=== PATIENT | male | born 1935 | race Caucasian/White ===

== ENCOUNTER → 2016-12-29 | Outpatient (CLI) | payer OTHER ==
[2016-12-29 11:16] LABS: ALT/SGPT 29 U/L (12-78); BLOOD UREA NITROGEN 16 mg/dl (7-18); BUN/CREATININE RATIO 13.3 (10-20); CALCIUM 8.8 mg/dl (8.5-10.1); CARBON DIOXIDE 29 mmol/L (21-32); CHLORIDE 105 mmol/L (98-107); CHOLESTEROL 169 mg/dl (0-200); GLUCOSE 118 mg/dl (70-99); POTASSIUM 4.2 mmol/L (3.5-5.1); SODIUM 141 mmol/L (136-145)
[2016-12-29 11:19] LABS: ALB/GLOB RATIO 1.1 (0.9-2); ALKALINE PHOSPHATASE 35 U/L (45-117); AST/SGOT 21 U/L (15-37); HDL CHOLESTEROL 42 mg/dl; LDL CHOLESTEROL CALCULATED 101 mg/dl; TRIGLYCERIDES 130 mg/dl (0-150); VERY LOW DENSITY LIPOPROT CALC 26 mg/dl
[2016-12-29 11:20] LABS: ESTIMATED AVERAGE GLUCOSE 137 mg/dl; HA1C FLAG Normal (Normal)
[2016-12-29 12:10] LABS: HEMATOCRIT 40.7 % (42-52); MEAN CELL VOLUME 85.1 fL (80-100); MEAN CORPUSCULAR HEMOGLOBIN 28.7 pg (25-34); MEAN CORPUSCULAR HGB CONC 33.7 g/dl (32-36); RED BLOOD COUNT 4.78 M/uL (4.7-6.1); WHITE BLOOD COUNT 4.48 K/uL (4.8-10.8)
[2016-12-29 12:16] LABS: BASO % 0.2 %; BASO ABS # 0.01 K/uL (0-0.2); COMPLETE YES; EOS % 0.7 %; IG% 0.9 %; LYMPH % 32.8 %; LYMPH ABS # 1.47 K/uL (1.2-3.4); MEAN PLATELET VOLUME 10.6 fL (7.4-10.4); NEUT % 42.4 %; PLATELET COUNT 93 K/uL (130-400)
== END | disposition home or self-care (01) ==
LOC: C.LABBC 08:10
PROVIDERS: ATTEND Internal Medicine
DX: R73.01 Impaired fasting glucose (principal)

== ENCOUNTER → 2017-01-03 | Outpatient (CLI) | payer OTHER ==
[2017-01-03 11:30] LABS: FERRITIN 348.6 ng/ml (8.0-388.0)
== END | disposition home or self-care (01) ==
LOC: C.LABBC 07:49
PROVIDERS: ATTEND Internal Medicine
DX: D61.818 Other pancytopenia (principal)

== ENCOUNTER → 2017-10-13 | Outpatient (CLI) | payer OTHER ==
[2017-10-13 10:59] LABS: HEMATOCRIT 41.4 % (42-52); MEAN CELL VOLUME 84.8 fL (80-100); MEAN CORPUSCULAR HEMOGLOBIN 29.3 pg (25-34); MEAN CORPUSCULAR HGB CONC 34.5 g/dl (32-36); MEAN PLATELET VOLUME 11.6 fL (7.4-10.4); PLATELET COUNT 98 K/uL (130-400); RED BLOOD COUNT 4.88 M/uL (4.7-6.1)
[2017-10-13 11:16] LABS: ALT/SGPT 33 U/L (12-78); AST/SGOT 25 U/L (15-37); BLOOD UREA NITROGEN 21 mg/dl (7-18); BUN/CREATININE RATIO 15.2 (10-20); CARBON DIOXIDE 31 mmol/L (21-32); CHLORIDE 101 mmol/L (98-107); CREATININE 1.38 mg/dl (0.60-1.40); GLUCOSE 136 mg/dl (70-99); SODIUM 133 mmol/L (136-145)
[2017-10-13 11:21] LABS: ALB/GLOB RATIO 1.1 (0.9-2); ALKALINE PHOSPHATASE 43 U/L (45-117); PROSTATE SPECIFIC ANTIGEN 0.224 ng/ml (0.000-4.000)
[2017-10-13 11:24] LABS: COMPLETE YES; LARGE GRANULAR LYMPH ABSOLUTE 0.86 K/uL; LARGE GRANULAR LYMPHOCYTE % 18.2 %; LYMPH ABS # 0.94 K/uL (1.2-3.4); NEUTROPHILS % 46.3 %; VACUOLIZATION 1+
[2017-10-13 11:53] LABS: ESTIMATED AVERAGE GLUCOSE 131 mg/dl; HA1C FLAG Normal (Normal)
== END | disposition home or self-care (01) ==
LOC: C.LABBC 07:59
PROVIDERS: ATTEND Urology
DX: N40.1 Benign prostatic hyperplasia with lower urinary tract symptoms (principal); J44.9 Chronic obstructive pulmonary disease, unspecified; G47.33 Obstructive sleep apnea (adult) (pediatric); E78.5 Hyperlipidemia, unspecified; R73.01 Impaired fasting glucose; I12.9 Hypertensive chronic kidney disease with stage 1 through stage 4 chronic kidney disease, or unspecified chronic kidney disease; N18.3 Chronic kidney disease, stage 3 (moderate); D61.818 Other pancytopenia

== ENCOUNTER → 2017-10-20 | Outpatient (CLI) | payer OTHER ==
[2017-10-20 11:16] LABS: BLOOD UREA NITROGEN 20 mg/dl (7-18); CALCIUM 8.9 mg/dl (8.5-10.1); CARBON DIOXIDE 28 mmol/L (21-32); GLUCOSE 135 mg/dl (70-99); SODIUM 137 mmol/L (136-145)
== END | disposition home or self-care (01) ==
LOC: C.LABBC 07:16
PROVIDERS: ATTEND Internal Medicine
DX: I10 Essential (primary) hypertension (principal)

== ENCOUNTER → 2017-10-26 | Outpatient (CLI) | payer OTHER ==
[2017-10-26 11:33] LABS: BLOOD UREA NITROGEN 17 mg/dl (7-18); CALCIUM 8.7 mg/dl (8.5-10.1); CARBON DIOXIDE 25 mmol/L (21-32); CREATININE 1.19 mg/dl (0.60-1.40); GLUCOSE 105 mg/dl (70-99); POTASSIUM 3.9 mmol/L (3.5-5.1); SODIUM 135 mmol/L (136-145)
== END | disposition home or self-care (01) ==
LOC: C.LABBC 07:40
PROVIDERS: ATTEND Internal Medicine
DX: I10 Essential (primary) hypertension (principal)

== ENCOUNTER 2019-09-17 16:09 | Inpatient (IN) ==
[2019-09-17] MEDS ORDERED: SODIUM CHLORIDE 0.9% 500 ML IV SCH (16:30)
--- NOTE | 2019-09-17 17:13 | XRay Report ---
XR chest 1V portable CLINICAL HISTORY: sob syncope dyspnea COMPARISON STUDY: No previous studies for comparison. FINDINGS: The bones soft tissues and hemidiaphragms are normal. The cardiomediastinal silhouette is n ormal. The lungs are clear. The pulmonary vasculature is normal. IMPRESSION: Negative chest. The above report was generated using voice recognition software. It may contain grammatical, syntax or spelling errors. Electronically signed by: Js Collier M.D. 09/17/2019 5:11 PM
[2019-09-17 17:30] LABS: Basophils # (auto) 0.02 K/uL (0-0.2); Basophils % (auto) 0.2 %; Eosinophils # (auto) 0.05 K/uL (0-0.5); Eosinophils % (auto) 0.6 %; Hematocrit (blood only) 39.1 % (42-52); Immature Granulocytes # (auto) 0.13 K/uL (0.00-0.02); Immature Granulocytes % (auto) 1.6 %; Lymphocytes # (auto) 1.47 K/uL (1.2-3.4); Lymphocytes % (auto) 18.2 %; Mean Corpuscular Hemoglobin 28.7 pg (25-34); Mean Corpuscular Hgb Conc 33.2 g/dL (32-36); Mean Corpuscular Volume 86.3 fL (80-100); Mean Platelet Volume 10.7 fL (7.4-10.4); Monocytes # (auto) 2.74 K/uL (0.11-0.59); Neutrophils # (auto) 3.66 K/uL (1.4-6.5); Neutrophils % (auto) 45.4 %; Platelet Count 48 K/uL (130-400); Platelet Estimate CAC (Normal); RDW Coefficient of Variation 13.6 % (11.5-14.5); Red Blood Count 4.53 M/uL (4.7-6.1); White Blood Count 8.07 K/uL (4.8-10.8)
[2019-09-17 18:00] LABS: D Dimer 1150 ug/L FEU (0-500)
[2019-09-17 18:05] LABS: Alanine Aminotransferase 32 U/L (12-78); Albumin Level 3.8 gm/dl (3.4-5.0); Aspartate Aminotransferase 29 U/L (15-37); BUN Creatinine Ratio 11.2 (10-20); Blood Urea Nitrogen 14 mg/dl (7-18); Calcium 8.6 mg/dl (8.5-10.1); Carbon Dioxide 25 mmol/L (21-32); Chloride 111 mmol/L (98-107); Creatinine Clr Calc Pharmacy 51.7 ml/min; Est GFR (African American) 62.7; Est GFR (Non-African American) 54.1; Glucose 90 mg/dl (70-99); Magnesium 2.1 mg/dl (1.8-2.4); Sodium 141 mmol/L (136-145)
[2019-09-17 18:09] LABS: Appearance Urine Clear (Clear); Bilirubin Urine Negative (Negative); Blood Urine Negative (Negative); Color Urine Yellow; Glucose Urine UA Negative (Negative); Ketones Urine Negative (Negative); Leukocyte Esterase Urine Negative (Negative); Nitrite Urine Negative (Negative); Protein Urine Negative (Negative); Specific Gravity Urine 1.009 (1.000-1.030); Urobilinogen Urine Negative (Negative)
[2019-09-17 18:16] LABS: Albumin Globulin Ratio 1.1 (0.9-2); Alkaline Phosphatase 50 U/L (45-117); Bilirubin,Total 0.6 mg/dl (0.2-1); Globulin 3.6 gm/dl (2.5-4.0); Total Protein 7.4 gm/dl (6.4-8.2); Troponin I < 0.015 ng/ml (0-0.045)
[2019-09-17] MEDS ORDERED: IOVERSOL 100ml IV PRN (18:30)
--- NOTE | 2019-09-17 18:31 | Emergency Department Note ---
Entered by Elizabeth Gaffney acting as a scribe for History of Present Illness General Chief complaint: Syncope Stated complaint: SYNCOPE, FALL Time Seen by Provider: 09/17/19 16:10 Source: patient History of Present Illness Provider complaint: Syncope Onset (ago): hour(s) 1 Pain Consistency: + other (Episodic) Relieved By: + none Exacerbated By: + none Associated symptoms: + shortness of breath; no chest pain, no headaches and no nausea/vomiting The patient is a 83 year old male who presents to the Emergency Room with complaints of episodic syncope that occurred while walking into the football stadium about 1 hour ago. Patient walked up the road a [place] and then was walking up the ramp at the stadium when he became short of breath. He grabbed onto the railing and passed out for several seconds. The patients friend note that he fell to his knees and then went down onto the ground and does not believe he hit his head. The patient's family states the patient was only unconscious for a second or two. The patient states the symptoms are not relieved nor exacerbated by anything specific. The patient reports experiencing shortness of breath but denies any chest pain. The patient denies experiencing any headaches or nausea/vomiting. The patient has a history of COPD but denies any history of diabetes, hypertension, or arrhythmias. Currently he has no complaints at this time. No head or neck pain, chest abdomen pelvis or extr emity pain. Home Medications Home Medications Medication Instructions Recorded Confirmed Type aspirin 81 mg tablet 81 mg PO DAILY tab 07/08/19 09/17/19 History docusate sodium 100 mg capsule 100 mg PO DAILY cap 07/08/19 09/17/19 History garlic 500 mg capsule 500 mg PO DAILY 07/08/19 09/17/19 History mometasone 50 mcg/actuation nasal 2 sprays INTRANASAL DAILY gm 07/08/19 09/17/19 History spray multivitamin 1 tab PO DAILY 07/08/19 09/17/19 History omega-3 acid ethyl esters 1 gram 1 cap PO DAILY cap 07/08/19 09/17/19 History capsule omeprazole 20 mg capsule,delayed 20 mg PO DAILY 08/15/19 09/17/19 History release potassium 99 mg tablet 99 mg PO DAILY 08/15/19 09/17/19 History tiotropium bromide 18 mcg capsule 1 cap INHALATION DAILY #90 puffs 09/02/19 09/17/19 Rx with inhalation device Allergies Allergy/AdvReac Type Severity Reaction Status Date / Time albuterol Allergy Verified 09/17/19 16:56 Past Med/Surg History Medical History COPD with emphysema Surgical History H/O eye surgery Family History Other Diabetes Hypertension Stroke Social History Preferred Language: Turkmen Communication Ability: Effective Beliefs That Will Affect Care: None marital status: Current Living Situation: Spouse current occupational status: retired Other Information That Helps Us Care for You: No Feels Safe at Home: Yes Safety Concerns: Feels Safe At This Time Smoking Status: Former smoker Hx Alcohol Use: Yes Alcohol type: beer, wine and hard liquor Hx Substance Use: No Review of Systems See HPI for pertinent positives & negatives. and A total of 10 systems reviewed and were otherwise negative Physical Exam Vital Signs Vital Signs - 24 hr 09/17/19 16:19 09/17/19 16:27 09/17/19 17:07 Temperature 36.9 C Temperature Source Oral Pulse Rate 77 Pulse Rate [Left] 66 Respiratory Rate 17 18 Respiratory Effort / Characteristics Non-Labored Spontaneous Non-Labored Spontaneous Respiratory Depth Normal Blood Pressure 181/102 H Blood Pressure [Right Arm] 157/97 H Blood Pressure Mean 128 Blood Pressure Mean [Right Arm] 117 Blood Pressure Position Lying Blood Pressure Position [Right Arm] Lying Pulse Oximetry 94 94 Oxygen Delivery Method Room Air Room Air Room Air Sepsis Recent Fever Within 48 Hours No Sepsis New/Unexplained Change in Mental Status No Sepsis Action Taken by Nursing No Action Required GENERAL: alert, well appearing, well nourished, no distress, non-toxic. Sitting up in bed. Talking in full sentences. Wearing a hospital gown. HEAD: normal cephalic, atraumatic EYE EXAM: normal conjunctiva, PERRL and EOM's grossly intact OROPHARYNX: no exudate, no erythema, lips, buccal mucosa, and tongue normal and mucous membranes are moist NECK: supple, no nuchal rigidity, no adenopathy, non-tender CHEST: stable to compression anteriorly and posteriorly LUNGS: clear to auscultation. Normal chest wall mechanics HEART: no murmurs, S1 normal and S2 normal ABDOMEN: abdomen soft, non-tender, normo-active bowel sounds, no masses, no re bound or guarding. PELVIS: stable to compression anteriorly and posteriorly BACK: Back is symmetrical on inspection and there is no deformity, no midline tenderness, no CVA tenderness. UPPER EXTREMITIES: full active and passive range of motion of all joints without tenderness to palpation LOWER EXTREMITIES: full active and passive range of motion of all joints without tenderness to palpation. Calves equal bilaterally. NEURO EXAM: Normal sensorium, cranial nerves II-XII grossly intact, normal speech, no gross weakness of arms, no gross weakness of legs. GCS: 15. Course Course ED COURSE: Vital signs were reviewed and showed that the patient is situationally hypertensive. The patients medical record was reviewed The above diagnostic studies were performed and reviewed. ED treatments and interventions as stated above. 1611: The patient was evaluated in room C06. A complete history and physical examination was performed. 1809: Upon reevaluation, the patient is resting comfortably. I discussed my findings with the patient's family and the patient's family understands and agrees with the treatment plan. 1845: I reassessed and updated the patient and his family on the CT results. Based on the patients age, coexisting illnesses, exam and lab findings the decision to treat as an inpatient was made. The patient remained stable while under my care. 1813: I spoke with Dr[facility] about the patient's case and she will accept the patient to be evaluated for further management. Administered Medications Ioversol (Optiray 320 100ml) 97 ml IV ONCE PRN PRN Reason: Interaction Checking Stop: 09/21/19 18:29 Last Admin: 09/17/19 18:30 Dose: 97 ml Documented by: [id number] Discontinued Medications Sodium Chloride (Nss) 500 mls @ 999 mls/hr IV .Q31M EPHRAMI Stop: 09/17/19 17:00 Last Infusion: 09/17/19 17:07 Dose: 0 mls/hr Documented by: [id number] Admin: 09/17/19 16:34 Dose: 999 mls/hr Documented by: [id number] Medical Decision Making Differential Diagnosis Differential diagnosis includes etiologies such as vasovagal event, infection, hypoglycemia, electrolyte abnormalities, cardiac sources, intracerebral event, toxicologic, neurologic, as well as others were entertained. Medical Records Attestation: I reviewed the patient's medical records. Home Medications Current Medication List: was personally reviewed by me Laboratory Data Attestation: I reviewed the patient's lab results. Result diagrams: 09/17/19 16:45 09/17/19 16:45 Lab Results 09/17/19 09/17/19 09/17/19 Range/Units 16:45 16:45 16:45 WBC 8.07 (4.8-10.8) K/uL RBC 4.53 L (4.7-6.1) M/uL Hgb 13.0 L (14.0-18.0) g/dL Hct 39.1 L (42-52) % MCV 86.3 (80-100) fL MCH 28.7 (25-34) pg MCHC 33.2 (32-36) g/dL RDW Std Deviation 43.0 (36.4-46.3) fL RDW Coeff of Princess 13.6 (11.5-14.5) % Plt Count 48 L (130-400) K/uL MPV 10.7 H (7.4-10.4) fL Immature Gran % (Auto) 1.6 % Neut % (Auto) 45.4 % Lymph % (Auto) 18.2 % [place] % (Auto) 34.0 % Eos % (Auto) 0.6 % Baso % (Auto) 0.2 % Immature Gran # (Auto) 0.13 H (0.00-0.02) K/uL Neut # (Auto) 3.66 (1.4-6.5) K/uL Lymph # (Auto) 1.47 (1.2-3.4) K/uL [place] # (Auto) 2.74 H (0.11-0.59) K/uL Eos # (Auto) 0.05 (0-0.5) K/uL Baso # (Auto) 0.02 (0-0.2) K/uL Platelet Estimate CAC (Normal) D-Dimer 1150 H* (0-500) ug/L FEU Sodium 141 (136-145) mmol/L Potassium 4.0 (3.5-5.1) mmol/L Chloride 111 H (98-107) mmol/L Carbon Dioxide 25 (21-32) mmol/L Anion Gap 5.0 (3-11) BUN 14 (7-18) mg/dl Creatinine 1.22 (0.6-1.4) mg/dl Est Cr Clr Drug Dosing 51.7 ml/min Est GFR ( Amer) 62.7 Est GFR (Non-Af Amer) 54.1 BUN/Creatinine Ratio 11.2 (10-20) Glucose 90 (70-99) mg/dl Calcium 8.6 (8.5-10.1) mg/dl Magnesium 2.1 (1.8-2.4) mg/dl Total Bilirubin 0.6 (0.2-1) mg/dl AST 29 (15-37) U/L ALT 32 (12-78) U/L Alkaline Phosphatase 50 (45-117) U/L Troponin I < 0.015 (0-0.045) ng/ml Total Protein 7.4 (6.4-8.2) gm/dl Albumin 3.8 (3.4-5.0) gm/dl Globulin 3.6 (2.5-4.0) gm/dl Albumin/Globulin Ratio 1.1 (0.9-2) TSH 2.170 (0.300-4.500) uIu/ml Urine Color Urine Appearance (Clear) Urine pH (4.5-7.5) Ur Specific [place] (1.000-1.030) Urine Protein (Negative) Urine Glucose (UA) (Negative) Urine Ketones (Negative) Urine Blood (Negative) Urine Nitrite (Negative) Urine Bilirubin (Negative) Urine Urobilinogen (Negative) Ur Leukocyte Esterase (Negative) 09/17/19 Range/Units 17:40 WBC (4.8-10.8) K/uL RBC (4.7-6.1) M/uL Hgb (14.0-18.0) g/dL Hct (42-52) % MCV (80-100) fL MCH (25-34) pg MCHC (32-36) g/dL RDW Std Deviation (36.4-46.3) fL RDW Coeff of Princess (11.5-14.5) % Plt Count (130-400) K/uL MPV (7.4-10.4) fL Immature Gran % (Auto) % Neut % (Auto) % Lymph % (Auto) % [place] % (Auto) % Eos % (Auto) % Baso % (Auto) % Immature Gran # (Auto) (0.00-0.02) K/uL Neut # (Auto) (1.4-6.5) K/uL Lymph # (Auto) (1.2-3.4) K/uL [place] # (Auto) (0.11-0.59) K/uL Eos # (Auto) (0-0.5) K/uL Baso # (Auto) (0-0.2) K/uL Platelet Estimate (Normal) D-Dimer (0-500) ug/L FEU Sodium (136-145) mmol/L Potassium (3.5-5.1) mmol/L Chloride (98-107) mmol/L Carbon Dioxide (21-32) mmol/L Anion Gap (3-11) BUN (7-18) mg/dl Creatinine (0.6-1.4) mg/dl Est Cr Clr Drug Dosing ml/min Est GFR ( Amer) Est GFR (Non-Af Amer) BUN/Creatinine Ratio (10-20) Glucose (70-99) mg/dl Calcium (8.5-10.1) mg/dl Magnesium (1.8-2.4) mg/dl Total Bilirubin (0.2-1) mg/dl AST (15-37) U/L ALT (12-78) U/L Alkaline Phosphatase (45-117) U/L Troponin I (0-0.045) ng/ml Total Protein (6.4-8.2) gm/dl Albumin (3.4-5.0) gm/dl Globulin (2.5-4.0) gm/dl Albumin/Globulin Ratio (0.9-2) TSH (0.300-4.500) uIu/ml Urine Color Yellow Urine Appearance Clear (Clear) Urine pH 7.0 (4.5-7.5) Ur Specific [place] 1.009 (1.000-1.030) Urine Protein Negative (Negative) Urine Glucose (UA) Negative (Negative) Urine Ketones Negative (Negative) Urine Blood Negative (Negative) Urine Nitrite Negative (Negative) Urine Bilirubin Negative (Negative) Urine Urobilinogen Negative (Negative) Ur Leukocyte Esterase Negative (Negative) Imaging Data Radiologist's Impression: Radiology results as stated below per my review and the radiologist's interpretation: XR chest 1V portable CLINICAL HISTORY: sob syncope dyspnea COMPARISON STUDY: No previous studies for comparison. FINDINGS: The bones soft tissues and hemidiaphragms are normal. The cardiomediastinal silhouette is normal. The lungs are clear. The pulmonary vasculature is normal. IMPRESSION: Negative chest. The above report was generated using voice recognition software. It may contain grammatical, syntax or spelling errors. Electronically signed by: Js Collier M.D. 09/17/2019 5:[address] angio chest PE protocol CT DOSE: 647.70 mGy.cm HISTORY: Dyspnea +dd sob syncope TECHNIQUE: Multiaxial CT images of the chest were performed following the intravenous administration of contrast to evaluate the pulmonary arteries. Maximal intensity projection images were also obtained. A dose lowering technique was utilized adhering to the principles of ALARA. COMPARISON STUDY: None. FINDINGS: There is a normal caliber thoracic aorta with no evidence for dissection. There is no evidence for pulmonary embolus. No pleural effusions. No pneumothorax. The liver and spleen are unremarkable. No mediastinal or hilar ly mphadenopathy. The central airways are patent. The lungs are clear. There is suggestion of perhaps a very subtle basilar interstitial prominence. IMPRESSION: 1. No evidence for pulmonary embolus. 2. Very slight basilar interstitial prominence 3. Lungs otherwise appear clear with no focal infiltrate. The above report was generated using voice recognition software. It may contain grammatical, syntax or spelling errors. Electronically signed by: Js Collier M.D. 09/17/2019 6:36 PM ECG Data Attestation: I personally reviewed and interpreted this ECG as follows: Indication: + syncope Rate (beats per minute): 77 Rhythm: + sinus rhythm ECG Intervals/blocks: + First degree AV block and + Left bundle branch block ECG ST segments: + ST depression and + T-wave inversions (Lateral) ECG Findings: + Other (Normal QTC) Comparison ECG Date: from (2002) Change: the following changes noted (LBBB is new) Blood Pressure Blood Pressure Findings: Elevated blood pressure Blood Pressure Disposition: further management by hospitalist FESTUS Narrative Patient is an 83-year-old male with a past medical history of CKD, hyperlipidemia and COPD that presents the ER for exertional shortness of breath and syncope. He walked up [place] to the football game and was going up the ramp and became more and more short of breath and passed out. He woke up, he had no complaints. There was no seizure activity. He did recently get back from a flight to [place]. IV was established blood work was obtained. He was brought in by EMS. CBC along with BMP, LFTs and troponin was unremarkable. D-dimer was positive and obtained due to recent travel. Chest x-ray without any focal infiltrate per my review. EKG has a new left bundle in comparison to his old. CT PE was obtained and was negative for any acute PE or dissection. Discussed with the hospitalist for observation due to exertional syncope with shortness of breath and a new left bundle. Patient and family were updated at bedside. Impression & Plan Syncope, New onset left bundle branch block (LBBB), SOB (shortness of breath), Thrombocytopenia Discharge Plan Visit Data Chief Complaint: Syncope Stated Complaint: SYNCOPE, FALL ED Provider: Paulino Ordoñez Discharge Problem: Syncope, New onset left bundle branch block (LBBB), SOB (shortness of breath), Thrombocytopenia Forms Stand Alone Forms: [facility] Prescriptions Prescriptions: No Action aspirin 81 mg tablet 81 mg PO DAILY RF: 0 docusate sodium 100 mg capsule 100 mg PO DAILY RF: 0 omega-3 acid ethyl esters 1 gram capsule 1 cap PO DAILY RF: 0 garlic 500 mg capsule 500 mg PO DAILY RF: 0 mometasone 50 mcg/actuation spray,non-aerosol 2 sprays intranasal DAILY RF: 0 multivitamin [Daily Multi-Vitamin] tablet 1 tab PO DAILY RF: 0 omeprazole 20 mg capsule,delayed release(DR/EC) 20 mg PO DAILY RF: 0 potassium 99 mg tablet 99 mg PO DAILY RF: 0 tiotropium bromide 18 mcg capsule, w/inhalation device 1 cap inhalation DAILY Qty: 90 RF: 3 Discharge Problem: Syncope Qualifiers: Syncope type: unspecified Qualified Code(s): R55 - Syncope and collapse The scribe's documentation has been prepared under my direction and personally reviewed by me in its entirety. I confirm that the note above accurately reflects all work, treatment, procedures, and medical decision making performed by me.
--- NOTE | 2019-09-17 18:37 | CT Scan Report ---
CT angio chest PE protocol CT DOSE: 647.70 mGy.cm HISTORY: Dyspnea +dd sob syncope TECHNIQUE: Multiaxial CT images of the chest were performed following the intravenous administration of contrast to evaluate the pulmonary arteries. Maximal intensity projection images were also obtaine d. A dose lowering technique was utilized adhering to the principles of ALARA. COMPARISON STUDY: None. FINDINGS: There is a normal caliber thoracic aorta with no evidence for dissection. There is no evide nce for pulmonary embolus. No pleural effusions. No pneumothorax. The liver and spleen are unremarkab le. No mediastinal or hilar lymphadenopathy. The central airways are patent. The lungs are clear. The re is suggestion of perhaps a very subtle basilar interstitial prominence. IMPRESSION: 1. No evidence for pulmonary embolus. 2. Very slight basilar interstitial prominence 3. Lungs otherwise appear clear with no focal infiltrate. The above report was generated using voice recognition software. It may contain grammatical, syntax or spelling errors. Electronically signed by: Js Collier M.D. 09/17/2019 6:36 PM
[2019-09-17] MEDS ORDERED: POLYETHYLENE (MIRALAX) 17 GM PACK PO PRN (21:02)
[2019-09-17] MEDS ORDERED: MAGNESIUM HYDROXIDE SUSP 30 ML UDC PO PRN (21:02)
[2019-09-17] MEDS ORDERED: ONDANSETRON INJ 2 MG/ML 2 ML VIAL IV PRN (21:02)
[2019-09-17] MEDS ORDERED: NON-FORMULARY MEDICATION (Garlic 500 MG) PO SCH (21:02)
[2019-09-17] MEDS ORDERED: ALUMINUM/MAGNESIUM SUSP 30 ML UDC PO PRN (21:02)
[2019-09-17] MEDS ORDERED: ACETAMINOPHEN 325 MG TAB PO PRN (21:02)
[2019-09-17] MEDS: TIOTROPIUM BROMIDE 5 PUFF/90 MCG INH INH SCH (21:56)
[2019-09-17] MEDS: MULTIVITAMIN TAB PO SCH (21:56)
[2019-09-17] MEDS: DOCUSATE SODIUM 100 MG CAP PO SCH (21:56)
[2019-09-17] MEDS ORDERED: ENOXAPARIN INJ 40 MG/0.4 ML SYR SQ SCH (22:00)
--- NOTE | 2019-09-17 22:04 | History & Physical Report ---
Date of Service September 17, 2019 Assessment & Plan (1) Syncope: Mid to PCU on telemetry for observation Vital signs every 4 hours Consult cardiology TTE pending MRI brain pending Pt started on Atoravastatine 40 mg PO Qhs. Second Troponin is mildly elev ated, check troponins x3 with EKG Started hydralazine 10 mg p.o. 4 times daily for elevated blood pressure as needed. DVT ppx : SCD, Teds Present on Admission?: Yes (2) New onset left bundle branch block (LBBB): Patient also has elevated troponin. Consult cardiology TTE pending (3) SOB (shortness of breath): Resolved Present on Admission?: Yes (4) Thrombocytopenia: Platelet count 46. Not clear origin or thrombocytopenia nor patient ever investigated for thrombocytopenia. Will refer to hematology oncology. Consult placed. Present on Admission?: Yes (5) Hyperlipidemia: Lipid panel pending. Started atorvastatin 40 mg p.o. nightly Present on Admission?: Yes (6) Impaired fasting glucose: A1c 6.2. Patient placed on diabetic diet. Present on Admission?: Yes (7) BPH (benign prostatic hyperplasia): She is not taking any medication for BPH. Will check PSA. Present on Admission?: Yes (8) Sleep apnea: Continue CPAP as per home settings. Present on Admission?: Yes (9) COPD (chronic obstructive pulmonary disease): Stable. Continue to tiotropium bromide 18 MCG's with inhalation daily. Continue mometasone 50 MCG's 2 sprays. Present on Admission?: Yes History of Present Illness Chief Complaint: Syncope Primary Care Provider: Ivan Mcduffie MD Patient is a 83 years old male will past medical history of COPD, hypertension, hyperlipidemia, impaired fasting glucose, BPH was brought by EMS to the em ergency room after the episodic syncope that occurred while walking [place] the football stadium about 1 hour ago. Patient walked up the road at [facility] and then he was walking up the ramp at the stadium when he became short of breath. Patient grabbed onto the railing and passed out for several seconds. Patient family was next to him and they noted that he fell on his knees and then went down on the ground but he did not hit his head. The patient stated that the patient was only unconscious for seconds or 2. Patient states that the symptoms are not relieved nor exacerbated by anything specific. Patient denies drinking or smoking at the time when the incident happened. Patient reports experiencing shortness of breath but denies chest pain. Patient denies fever, chills, chest pain, abdominal pain, frequency, urgency was sent patient arrived to the emergency room as he was not short of breath anymore and he was fully alert and oriented and giving the proper history. Patient is very pleasant in person and said that he was only taking his inhaler and usually he was not taking any other of his medications. Patient uses CPAP at night. Labs are reviewed: WBCs 8.07, hemoglobin 13, hematocrit 39.1 platelets 48, D-dimers 1150, sodium 141, potassium 4, magnesium 2.1, AST 29, ALT 32, alkaline phosphatase 50., Chloride 111, anion gap 5, BUN 14, creatinine 1.22, GFR 54.1, initial troponin was - 0.015, the second troponin was 0.0 46, TSH 2.17. CTA of the chest no evidence of pulmonary embolism. Very slight bibasilar interstitial prominence. Lungs otherwise appear clear with no focal infiltrate. Initial EKG is showing sinus rhythm with with first-degree AV block and left bundle branch block. Allergies Allergy/AdvReac Type Severity Reaction Status Date / Time albuterol Allergy Verified 09/17/19 16:56 Home Medications Home Medications Medication Instructions Recorded Confirmed Type aspirin 81 mg tablet 81 mg PO DAILY tab 07/08/19 09/17/19 History docusate sodium 100 mg capsule 100 mg PO DAILY cap 07/08/19 09/17/19 History garlic 500 mg capsule 500 mg PO DAILY 07/08/19 09/17/19 History mometasone 50 mcg/actuation nasal 2 sprays INTRANASAL DAILY gm 07/08/19 09/17/19 History spray multivitamin 1 tab PO DAILY 07/08/19 09/17/19 History omega-3 acid ethyl esters 1 gram 1 cap PO DAILY cap 07/08/19 09/17/19 History capsule omeprazole 20 mg capsule,delayed 20 mg PO DAILY 08/15/19 09/17/19 History release potassium 99 mg tablet 99 mg PO DAILY 08/15/19 09/17/19 History tiotropium bromide 18 mcg capsule 1 cap INHALATION DAILY #90 puffs 09/02/19 09/17/19 Rx with inhalation device Past Med/Surg History Medical History COPD with emphysema Surgical History H/O eye surgery Family History Other Diabetes Hypertension Stroke Social History Preferred Language: Telugu Communication Ability: Effective Beliefs That Will Affect Care: None marital status: Current Living Situation: Spouse current occupational status: retired Other Information That Helps Us Care for You: No Feels Safe at Home: Yes Safety Concerns: Feels Safe At This Time Smoking Status: Former smoker Hx Alcohol Use: Yes Alcohol type: beer, wine and hard liquor Hx Substance Use: No Review of Systems Review of Systems: All systems reviewed & are unremarkable except as noted in HPI & below Physical Exam Constitutional: WD/WN, vitals as above well developed Eyes: PERRL, conjunctivae normal, anicteric sclerae ENMT: external ear and nose normal, oropharynx normal Neck: trachea midline, no thyromegaly Respiratory: normal respiratory effort, lungs clear to auscultation Cardiovascular: Heart Sounds: normal S1 and normal S2 Palpation: normal PMI Vessels: dorsalis pedis pulses present Gastrointestinal (Abdomen): normal bowel sounds, soft, nontender, no hepatosplenomegaly Musculoskeletal: no cyanosis or clubbing, extremities motor strength 5/5 Skin: no rashes, warm and dry Neurologic: patellar DTR's 2+ bilat, sensation intact Psychiatric: A+Ox3, euthymic affect Lymphatic: no cervical or axillary lymphadenopathy Results & Data Vital Signs (Past 12 Hours) Vital Signs Temp Pulse Pulse Resp BP BP Pulse Ox 09/17/19 21:29 36.6 C 69 180/110 H 95 09/17/19 20:24 69 14 163/118 H 94 09/17/19 20:02 70 19 186/118 H 93 09/17/19 19:04 69 16 197/106 H 95 09/17/19 17:07 66 18 157/97 H 94 09/17/19 16:19 36.9 C 77 17 181/102 H 94 Code Status & VTE Plan Code Status Full code VTE Prophylaxis Plan VTE Prophylaxis will be ordered: Yes PG Care Time/CCT Total # of Minutes Spent Total Time Spent with Patient: Total time spent is greater than 50% in coordination of care (as documented) at patient's floor/unit and/or counseling patient: (1) Syncope Syncope type: unspecified Qualified Code(s): R55 - Syncope and collapse
[2019-09-17] MEDS: HydrALAZINE 10 MG TAB PO PRN (22:44)
[2019-09-18 03:03] LABS: Hematocrit (blood only) 38.7 % (42-52); Mean Corpuscular Hemoglobin 28.7 pg (25-34); Mean Corpuscular Hgb Conc 33.6 g/dL (32-36); Mean Corpuscular Volume 85.4 fL (80-100); RDW Coefficient of Variation 13.8 % (11.5-14.5); RDW Standard Deviation 42.6 fL (36.4-46.3); Red Blood Count 4.53 M/uL (4.7-6.1)
[2019-09-18 03:19] LABS: Mean Platelet Volume 11.2 fL (7.4-10.4); Platelet Count 47 K/uL (130-400)
[2019-09-18 03:31] LABS: Basophils # (auto) 0.01 K/uL (0-0.2); Basophils % (auto) 0.1 %; Eosinophils # (auto) 0.06 K/uL (0-0.5); Eosinophils % (auto) 0.6 %; Immature Granulocytes # (auto) 0.11 K/uL (0.00-0.02); Lymphocytes # (auto) 3.07 K/uL (1.2-3.4); Lymphocytes % (auto) 28.7 %; Monocytes # (auto) 2.18 K/uL (0.11-0.59); Monocytes % (auto) 20.4 %; Neutrophils # (auto) 5.27 K/uL (1.4-6.5); Neutrophils % (auto) 49.2 %
[2019-09-18 03:36] LABS: Albumin Level 3.8 gm/dl (3.4-5.0); BUN Creatinine Ratio 9.3 (10-20); Calcium 8.8 mg/dl (8.5-10.1); Creatinine Clr Calc Pharmacy 52.5 ml/min; Est GFR (Non-African American) 55.2; Potassium 4.1 mmol/L (3.5-5.1)
[2019-09-18 03:41] LABS: Albumin Globulin Ratio 1.2 (0.9-2); Bilirubin,Total 0.8 mg/dl (0.2-1); Globulin 3.3 gm/dl (2.5-4.0); Prostate Specific Antigen 0.425 ng/ml (0-4); Total Protein 7.1 gm/dl (6.4-8.2); Troponin I 0.04 ng/ml (0-0.045)
--- NOTE | 2019-09-18 06:13 | Magnetic Resonance Report ---
MRI OF THE BRAIN WITHOUT CONTRAST CLINICAL HISTORY: syncope, fall COMPARISON STUDY: None. FINDINGS: Sagittal T1, axial diffusion, proton density and T2 weighted axial, coronal FLAIR, and axial T1-weigh amanda images were acquired. No intra or extra-axial mass lesions are visualized Axial diffusion-weighted images reveal no evidence of acute or subacute infarction. There is no evidence of ventricular dilatation. Proton density T2-weighted and FLAIR images reveal scattered foci of increased T2 signal within the w victor manuel matter, likely on a small vessel basis. There are no abnormal flow voids. IMPRESSION: 1. No acute intracranial findings 2. No evidence of intracranial mass 3. No evidence of acute or subacute infarction Electronically signed by: Osorio Lara M.D. 09/18/2019 6:11 AM
--- NOTE | 2019-09-18 06:30 | Ultrasound Report ---
US venous doppler LE BI CLINICAL HISTORY: Bilateral leg pain COMPARISON STUDY: No previous studies for comparison. FINDINGS: Real-time and color flow Doppler imaging were performed. Flow was seen within the femoral, popliteal and calf veins with no intraluminal thrombus demonstrated. The saphenous vein is patent. IMPRESSION: No evidence of lower extremity DVT. Electronically signed by: Osorio Lara M.D. 09/18/2019 6:29 AM
[2019-09-18] MEDS: TIOTROPIUM BROMIDE 5 PUFF/90 MCG INH INH SCH (08:09)
[2019-09-18] MEDS: HydrALAZINE 10 MG TAB PO PRN (08:10)
[2019-09-18] MEDS: PANTOprazole 40 MG TAB PO SCH (08:10)
[2019-09-18] MEDS: ASPIRIN 81 MG ECTAB PO SCH (08:10)
[2019-09-18] MEDS: OMEGA-3 (PURIFIED FISH OIL) 1 GM CAP PO SCH (08:10)
[2019-09-18] MEDS: DOCUSATE SODIUM 100 MG CAP PO SCH (08:10)
[2019-09-18] MEDS: MULTIVITAMIN TAB PO SCH (08:10)
[2019-09-18] MEDS ORDERED: PERFLUTREN LIPID MICROSPHERE (DEFINITY) IV ONE (09:21)
[2019-09-18] MEDS: FLUTICASONE PROPIONATE NA SPR 16 GM BTL SCH (11:11)
--- NOTE | 2019-09-18 11:12 | Cardiology Consultation ---
Date of Consultation September 18, 2019 Assessment & Plan (1) Syncope: He presents with a single episode of syncope, it occurred following moderate activity however he goes to the gym regularly and is used to being very active. He thinks it is very unusual for this to have happened and it occurred essentially without warning. There are several possibilities, one being the presence of his first-degree AV block and left bundle branch block suggesting significant AV conduction disease and possible heart block. Another possibility is ischemia, possibly leading to heart block, since his cardiac enzymes were elevated. Another possibility is hypoxia however he does not think he was significantly short of breath compared to prior times when he exerts himself and this is never happened before. It may be difficult to sort these out. We will need to get an echocardiogram if not done. (2) LBBB (left bundle branch block): He has a newly diagnosed left bundle branch block but I do not know if it is new. He is never had an electrocardiogram that he is aware of and we do not have records of one. It is conceivable this is long-standing or that it is recently progressive. Reversible causes of left bundle branch block include Lyme disease, he has a possible exposure but no symptoms. I am going to draw Lyme titers. It could be intrinsic conduction system disease, it is possible it is ischemia however he has minimal evidence for that. (3) SOB (shortness of breath): He has significant shortness of breath and does have COPD and a prior smoking history, however he exerts himself regularly and is never had lightheadedness before. It seems unlikely but possible that this was due to hypoxia and conduction system disease or sinus node disease. We could possibly sort that out on treadmill testing which I think would be reasonable to do. He seems to be in good shape despite his age and I think a treadmill stress test might be reasonable. (4) Elevated troponin I level: He does have an elevated troponin, that increased slightly before dropping back toward normal after admission. This is more suggestive of demand ischemia than it is of an acute myocardial infarction. He does not have a history of coronary disease nor does he have exertional chest discomfort however I think we should look into this. I think we should do a stress test, with his left bundle branch block it would have to be a nuclear stress test. Although weight treadmill stress nuclear study may be a little less specific than a pharmacologic in the presence of left bundle branch block we would get a lot of information regarding his exercise-induced AV conduction and I think we should do a treadmill test. I am going to try to arrange this for tomorrow. History of Present Illness Reason for Consultation: Syncope, left bundle branch block Attending Physician: eZke Laughlin, DO History of Present Illness This is a very active 83-year-old male who has a history of prior smoking but that is remote, he also has COPD however as well as obstructive sleep apnea. He does have a history of hypertension, hyperlipidemia. He has chronic kidney disease and BPH. He continues to work in the [email or web address] 20 hours/week. He was just in [place] for a week and came back on . He presents now with an episode of syncope. This occurred while walking into the football stadium during the game on September 17, 2019. He became short of breath, grabbed the railing and passed out for several seconds. He had walked over from the parking lot and they had been walking fairly quickly and it was somewhat cold however he was not extraordinarily short of breath and he is quite surprised that this happened. He has had nothing similar before, he did have one episode where he stood up quickly from a chair about a year ago and then felt lightheaded and collapsed back into the chair but did not lose consciousness. His family noted that at the football stadium he fell on his knees and then went down onto the ground but was only unconscious for several seconds per their recollection. He had no other symptoms such as chest discomfort or palpitations. Initial evaluation in the emergency room showed a normal first troponin with the second being 0.046, however his electrocardiogram showed left bundle branch block with first-degree AV block. We do not seem to have a prior elect rocardiogram. He has never been in the hospital before and does not think he has ever had an electrocardiogram. He does not have a known history of Lyme exposure, and he has not had other symptoms to suggest Lyme disease. He was admitted and today feels very well and has had no further symptoms. His third troponin is 0.040. His blood pressure has been markedly elevated since admission. Allergies Allergy/AdvReac Type Severity Reaction Status Date / Time albuterol Allergy Verified 09/17/19 16:56 Home Medications Home Medications Medication Instructions Recorded Confirmed Type aspirin 81 mg tablet 81 mg PO DAILY tab 07/08/19 09/17/19 History docusate sodium 100 mg capsule 100 mg PO DAILY cap 07/08/19 09/17/19 History garlic 500 mg capsule 500 mg PO DAILY 07/08/19 09/17/19 History multivitamin 1 tab PO DAILY 07/08/19 09/17/19 History omega-3 acid ethyl esters 1 gram 1 cap PO DAILY cap 07/08/19 09/17/19 History capsule omeprazole 20 mg capsule,delayed 20 mg PO DAILY 08/15/19 09/17/19 History release potassium 99 mg tablet 99 mg PO DAILY 08/15/19 09/17/19 History tiotropium bromide 18 mcg capsule 1 cap INHALATION DAILY #90 puffs 09/02/19 09/17/19 Rx with inhalation device fluticasone propionate [Flonase 2 spray INTRANASAL DAILY 09/18/19 09/18/19 History Allergy Relief] Patient History Medical History COPD with emphysema Surgical History H/O eye surgery Family History Other Diabetes Hypertension Stroke Social History Preferred Language: Hebrew Communication Ability: Effective Beliefs That Will Affect Care: None marital status: Current Living Situation: Spouse current occupational status: retired Other Information That Helps Us Care for You: No Feels Safe at Home: Yes Safety Concerns: Feels Safe At This Time Smoking Status: Former smoker Hx Alcohol Use: Yes Alcohol type: beer, wine and hard liquor Hx Substance Use: No Review of Systems Review of Systems: All systems reviewed & are unremarkable except as noted in HPI & below Physical Exam Physical Exam: Constitutional: Alert, cooperative and in no distress. HEENT: Unremarkable Neck: No jugular venous distention, carotid pulses are normal and equal bilaterally without bruits. Pulmonary: Clear to auscultation bilaterally. Cardiac: Regular rhythm with no murmur, gallop or rub. Abdomen: Soft, nontender with normal bowel sounds. Extremities: No edema. Distal pulses intact. Neurologic: No focal findings. Gait is steady. Skin: No rash, ecchymoses or petechiae. Results & Data Vital Signs (Past 12 Hours) Vital Signs Temp Pulse Pulse Resp BP Pulse Ox 09/18/19 07:55 36.7 C 65 19 175/95 H 95 09/18/19 07:24 62 09/18/19 04:15 36.6 C 59 L 16 165/90 H 94 09/18/19 00:00 36.6 C 62 18 167/86 H 93 Laboratory Results Abnormal lab results 09/17/19 09/17/19 09/17/19 Range/Units 16:45 16:45 16:45 RBC 4.53 L (4.7-6.1) M/uL Hgb 13.0 L (14.0-18.0) g/dL Hct 39.1 L (42-52) % Plt Count 48 L (130-400) K/uL MPV 10.7 H (7.4-10.4) fL Immature Gran # (Auto) 0.13 H (0.00-0.02) K/uL Kenton # (Auto) 2.74 H (0.11-0.59) K/uL D-Dimer 1150 H* (0-500) ug/L FEU Chloride 111 H (98-107) mmol/L BUN/Creatinine Ratio (10-20) Glucose (70-99) mg/dl Troponin I (0-0.045) ng/ml 09/17/19 09/18/19 09/18/19 Range/Units 21:06 02:53 02:53 RBC 4.53 L (4.7-6.1) M/uL Hgb 13.0 L (14.0-18.0) g/dL Hct 38.7 L (42-52) % Plt Count 47 L (130-400) K/uL MPV 11.2 H (7.4-10.4) fL Immature Gran # (Auto) 0.11 H (0.00-0.02) K/uL Kenton # (Auto) 2.18 H (0.11-0.59) K/uL D-Dimer (0-500) ug/L FEU Chloride 108 H (98-107) mmol/L BUN/Creatinine Ratio 9.3 L (10-20) Glucose 102 H (70-99) mg/dl Troponin I 0.046 H* (0-0.045) ng/ml Diagnostic Findings His presenting electrocardiogram on September 17, 2019 at 1612 shows sinus rhythm at 77 bpm with first-degree AV block and left bundle branch block. The [place] i nterval is 226 ms. QRS duration is 150 ms. A second electrocardiogram done September 17, 2019 at 2218 is very similar with similar intervals. Telemetry: Sinus rhythm rate 60-70 with no AV block but a persistent IVCD pattern. Echocardiography: PG Care Time/CCT Total # of Minutes Spent Total Time Spent with Patient: Total time spent is greater than 50% in coordination of care (as documented) at patient's floor/unit and/or counseling patient: (1) Syncope Syncope type: unspecified Qualified Code(s): R55 - Syncope and collapse
--- NOTE | 2019-09-18 12:47 | Hospitalist Progress Note ---
Date of Service September 18, 2019 Assessment & Plan (1) Syncope: occurred [place] preceded by some dyspnea, no chest pain or pressure MRI brain negative for stroke CTA chest negative for PE, pneumonia no evidence of acute AL, troponin did bump very slightly to 0.04 from <0.015 LBBB and 1st degree AV block on monitor, unsure of chronicity of these findings no arrhythmia on monitor await results of TTE done this morning plan for exercise treadmill stress test with Lexiscan imaging tomorrow to look for any evidence of ischemia Lyme testing sent to determine if he could have Lyme carditis as cause of conduction abnormality follow up results change to full admission as he will be here two midnights (2) New onset left bundle branch block (LBBB): TTE done, results pending minimal rise in trop, no evidence of acute AL Lyme screen ordered to r/o Lyme carditis (3) SOB (shortness of breath): Resolved (4) Thrombocytopenia: Platelet count 47. Not clear origin or thrombocytopenia nor patient ever investigated for thrombocytopenia. 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 (9) COPD (chronic obstructive pulmonary disease): Stable. Continue to tiotropium bromide 18 MCG's with inhalation daily. Continue mometasone 50 MCG's 2 sprays. Subjective patient feeling well today, no further syncopal episodes since yesterday prior to admission he says he was exerting himself, walking quickly to go to game, confirmed that he had not been drinking, just arrived to the game he never had any chest pain or pressure, he just felt a little short of breath and felt "off", grabbed railing and called to his son in law and then lost consciousness for a few seconds work up thus far was reviewed, MRI brain negative for stroke, CTA chest negative for PE or pneumonia minimal rise in trop up to 0.04 EKG with 1st degree AV block and LBBB, unsure if this is a brand new finding as he has not had an EKG for at least several years no tachyarrhythmias on the monitor discussed with Dr. Cruz, plan to perform exercise treadmill stress test tomorrow to monitor rhythm while exerting himself will couple this with a nuclear study, he will arrange discussed this plan with patient, he agrees with plan Review of Systems Review of Systems: All systems reviewed & are unremarkable except as noted in HPI & below Physical Exam Constitutional: WD/WN, vitals as above Eyes: PERRL, conjunctivae normal, anicteric sclerae ENMT: external ear and nose normal, oropharynx normal Neck: trachea midline, no thyromegaly Respiratory: normal respiratory effort, lungs clear to auscultation Cardiovascular: RRR, no murmur, no edema Gastrointestinal (Abdomen): normal bowel sounds, soft, nontender, no hepatosplenomegaly Musculoskeletal: no cyanosis or clubbing, extremities motor strength 5/5 Skin: no rashes, warm and dry Neurologic: patellar DTR's 2+ bilat, sensation intact and PERRL, EOMI, accommodation nl, no face palsy, no dysarthria Psychiatric: A+Ox3, euthymic affect Lymphatic: no cervical or axillary lymphadenopathy Results & Data Vital Signs (Past 12 Hours) Vital Signs Temp Pulse Pulse Resp BP Pulse Ox 09/18/19 11:34 36.9 C 62 19 164/93 H 96 09/18/19 07:55 36.7 C 65 19 175/95 H 95 09/18/19 07:24 62 09/18/19 04:15 36.6 C 59 L 16 165/90 H 94 Laboratory Results Laboratory Results - last 24 hr 09/17/19 09/17/19 09/17/19 16:45 16:45 16:45 WBC 8.07 RBC 4.53 L Hgb 13.0 L Hct 39.1 L MCV 86.3 MCH 28.7 MCHC 33.2 RDW Std Deviation 43.0 RDW Coeff of Princess 13.6 Plt Count 48 L MPV 10.7 H Immature Gran % (Auto) 1.6 Neut % (Auto) 45.4 Lymph % (Auto) 18.2 Dickenson % (Auto) 34.0 Eos % (Auto) 0.6 Baso % (Auto) 0.2 Immature Gran # (Auto) 0.13 H Neut # (Auto) 3.66 Lymph # (Auto) 1.47 Dickenson # (Auto) 2.74 H Eos # (Auto) 0.05 Baso # (Auto) 0.02 Platelet Estimate CAC D-Dimer 1150 H* Sodium 141 Potassium 4.0 Chloride 111 H Carbon Dioxide 25 Anion Gap 5.0 BUN 14 Creatinine 1.22 Est Cr Clr Drug Dosing 51.7 Est GFR ( Amer) 62.7 Est GFR (Non-Af Amer) 54.1 BUN/Creatinine Ratio 11.2 Glucose 90 Estimat Average Glucose Hemoglobin A1c Calcium 8.6 Magnesium 2.1 Total Bilirubin 0.6 AST 29 ALT 32 Alkaline Phosphatase 50 Troponin I < 0.015 Total Protein 7.4 Albumin 3.8 Globulin 3.6 Albumin/Globulin Ratio 1.1 Triglycerides Cholesterol LDL Cholesterol, Calc VLDL Cholesterol, Calc HDL Cholesterol Cholesterol/HDL Ratio Prostate Specific Ag TSH 2.170 Urine Color Urine Appearance Urine pH Ur Specific [place] Urine Protein Urine Glucose (UA) Urine Ketones Urine Blood Urine Nitrite Urine Bilirubin Urine Urobilinogen Ur Leukocyte Esterase Lyme Disease IgG Ab Lyme Disease IgM Ab 09/17/19 09/17/19 09/18/19 17:40 21:06 02:53 WBC RBC Hgb Hct MCV MCH MCHC RDW Std Deviation RDW Coeff of Princess Plt Count MPV Immature Gran % (Auto) Neut % (Auto) Lymph % (Auto) Dickenson % (Auto) Eos % (Auto) Baso % (Auto) Immature Gran # (Auto) Neut # (Auto) Lymph # (Auto) Dickenson # (Auto) Eos # (Auto) Baso # (Auto) Platelet Estimate D-Dimer Sodium 141 Potassium 4.1 Chloride 108 H Carbon Dioxide 28 Anion Gap 5.0 BUN 11 Creatinine 1.20 Est Cr Clr Drug Dosing 52.5 Est GFR ( Amer) 64.0 Est GFR (Non-Af Amer) 55.2 BUN/Creatinine Ratio 9.3 L Glucose 102 H Estimat Average Glucose Hemoglobin A1c Calcium 8.8 Magnesium Total Bilirubin 0.8 AST 25 ALT 30 Alkaline Phosphatase 47 Troponin I 0.046 H* 0.040 Total Protein 7.1 Albumin 3.8 Globulin 3.3 Albumin/Globulin Ratio 1.2 Triglycerides 113 Cholesterol 144 LDL Cholesterol, Calc 86 VLDL Cholesterol, Calc 23 HDL Cholesterol 35 Cholesterol/HDL Ratio 4 Prostate Specific Ag 0.425 TSH Urine Color Yellow Urine Appearance Clear Urine pH 7.0 Ur Specific [place] 1.009 Urine Protein Negative Urine Glucose (UA) Negative Urine Ketones Negative Urine Blood Negative Urine Nitrite Negative Urine Bilirubin Negative Urine Urobilinogen Negative Ur Leukocyte Esterase Negative Lyme Disease IgG Ab Lyme Disease IgM Ab 09/18/19 09/18/19 09/18/19 02:53 02:53 12:03 WBC 10.70 RBC 4.53 L Hgb 13.0 L Hct 38.7 L MCV 85.4 MCH 28.7 MCHC 33.6 RDW Std Deviation 42.6 RDW Coeff of Princess 13.8 Plt Count 47 L MPV 11.2 H Immature Gran % (Auto) 1.0 Neut % (Auto) 49.2 Lymph % (Auto) 28.7 Dickenson % (Auto) 20.4 Eos % (Auto) 0.6 Baso % (Auto) 0.1 Immature Gran # (Auto) 0.11 H Neut # (Auto) 5.27 Lymph # (Auto) 3.07 Dickenson # (Auto) 2.18 H Eos # (Auto) 0.06 Baso # (Auto) 0.01 Platelet Estimate D-Dimer Sodium Potassium Chloride Carbon Dioxide Anion Gap BUN Creatinine Est Cr Clr Drug Dosing Est GFR ( Amer) Est GFR (Non-Af Amer) BUN/Creatinine Ratio Glucose Estimat Average Glucose Pending Hemoglobin A1c Pending Calcium Magnesium Total Bilirubin AST ALT Alkaline Phosphatase Troponin I Total Protein Albumin Globulin Albumin/Globulin Ratio Triglycerides Cholesterol LDL Cholesterol, Calc VLDL Cholesterol, Calc HDL Cholesterol Cholesterol/HDL Ratio Prostate Specific Ag TSH Urine Color Urine Appearance Urine pH Ur Specific [place] Urine Protein Urine Glucose (UA) Urine Ketones Urine Blood Urine Nitrite Urine Bilirubin Urine Urobilinogen Ur Leukocyte Esterase Lyme Disease IgG Ab Pending Lyme Disease IgM Ab Pending Medications Administered Current Inpatient Medications Acetaminophen (Tylenol) 650 mg PO Q4H PRN PRN Reason: Pain or Fever Stop: 10/17/19 21:01 Al Hydrox/Mg Hydrox/Simethicone (Maalox) 15 ml PO Q4H PRN PRN Reason: Dyspepsia Stop: 10/17/19 21:01 Aspirin (Ecotrin Ectab) 81 mg PO DAILY [facility] Stop: 10/18/19 08:59 Last Admin: 09/18/19 08:10 Dose: 81 mg Documented by: Docusate Sodium (Colace) 100 mg PO DAILY [facility] Stop: 10/17/19 21:01 Last Admin: 09/18/19 08:10 Dose: 100 mg Documented by: Fish Oil (Nimitz-3 (Purified Fish Oil)) 1 gm PO DAILY [facility] Stop: 10/18/19 08:59 Last Admin: 09/18/19 08:10 Dose: 1 gm Documented by: Fluticasone Propionate (Flonase) 2 sprays NA DAILY [facility] Stop: 10/18/19 10:59 Last Admin: 09/18/19 11:11 Dose: 2 sprays Documented by: Hydralazine HCl (Apresoline) 10 mg PO QID PRN PRN Reason: high blood pressure Stop: 10/18/19 08:59 Last Admin: 09/18/19 08:10 Dose: 10 mg Documented by: Magnesium Hydroxide (Milk Of Magnesia) 30 ml PO Q12H PRN PRN Reason: Constipation Stop: 10/17/19 21:01 Multivitamins (Multivitamin Tab) 1 tab PO DAILY [facility] Stop: 10/17/19 21:01 Last Admin: 09/18/19 08:10 Dose: 1 tab Documented by: Ondansetron HCl (Zofran) 4 mg IV Q6H PRN PRN Reason: Nausea Stop: 10/17/19 21:01 Pantoprazole Sodium (Protonix) 40 mg PO DAILY [facility] Stop: 10/18/19 08:59 Last Admin: 09/18/19 08:10 Dose: 40 mg Documented by: Polyethylene Glycol (Miralax Powder Packet) 17 gm PO DAILY PRN PRN Reason: Constipation Stop: 10/17/19 21:01 Tiotropium Warren (Spiriva) 1 puffs INH DAILY [facility] Stop: 10/17/19 21:01 Last Admin: 09/18/19 08:09 Dose: 1 puffs Documented by: PG Care Time/CCT Total # of Minutes Spent Total Time Spent with Patient: Total time spent is greater than 50% in coordination of care (as documented) at patient's floor/unit and/or counseling patient: (1) Syncope Syncope type: unspecified Qualified Code(s): R55 - Syncope and collapse
[2019-09-18 13:13] LABS: Lyme Ab IgG w/WB Rflx Negative (Negative); Lyme Ab IgM w/WB Rflx Negative (Negative)
--- NOTE | 2019-09-18 13:24 | Oncology Consultation ---
Date of Consultation September 18, 2019 Assessment & Plan (1) Thrombocytopenia: Mr. Haque has a moderate thrombocytopenia without an immediately obvious explanation. His other counts are largely normal, though he is very slightly anemic. This makes a primary marrow disorder less likely, though in 2017 he had some LGLs in his peripheral blood that could point to a disease like LGL leukemia. However, he does not appear to have these cells in his blood now. Liver disease can cause isolated thrombocytopenia due to hypersplenism. He is not a drinker but did serve in [employer] in the and so has a viral hepatitis risk. He also is obese and could have fatty liver disease. I would get an ul trasound of his abdomen. He does not have any obvious infections, aside from some mild URI symptoms. He did not start any new medications recently. He also could have ITP, though that is a difficult diagnosis to confirm. We can start with the US and peripheral smear. I can see him as an outpatient to continue the workup if an answer does not reveal itself while he is here. Present on Admission?: Yes History of Present Illness Reason for Consultation: Thrombocytopenia Attending Physician: Zeke Laughlin, DO History of Present Illness Mr. Haque is an 83 year old man with a history of COPD, CKD, EMI, and hyperlipidemia. He was attending the [employer] football game yesterday when he passed out. He slumped to the ground but did not fall or hit himself. He was unconscious for a few seconds. He does not recall any prodromal symptoms and denies any dizziness, chest pain, palpitations, headaches, or vision changes. Here, he was found to have a left bundle branch block, though it was not clear if it is new. He is pending a stress test and further cardiac workup tomorrow. His platelets on admission were 48K and are 47K today. His hemoglobin is 13 and his WBCs are normal (8-10K) with a normal ANC but slightly increased monocytes and immature granulocytes. He does not have a lot of prior CBCs, but one from September 2017 showed a platelet count of 98K with normal hemoglobin and WBCs and some increased large granular lymphocytes. He denies any fevers, sweats, cough, shortness of breath, or dysuria, though he does report some upper respiratory congestion in the last 24-48 hours. He has no history of liver disease and drinks alcohol only sparingly. He has not started any new medications recently. Allergies Allergy/AdvReac Type Severity Reaction Status Date / Time albuterol Allergy Verified 09/17/19 16:56 Home Medications Home Medications Medication Instructions Recorded Confirmed Type aspirin 81 mg tablet 81 mg PO DAILY tab 07/08/19 09/17/19 History docusate sodium 100 mg capsule 100 mg PO DAILY cap 07/08/19 09/17/19 History garlic 500 mg capsule 500 mg PO DAILY 07/08/19 09/17/19 History multivitamin 1 tab PO DAILY 07/08/19 09/17/19 History omega-3 acid ethyl esters 1 gram 1 cap PO DAILY cap 07/08/19 09/17/19 History capsule omeprazole 20 mg capsule,delayed 20 mg PO DAILY 08/15/19 09/17/19 History release potassium 99 mg tablet 99 mg PO DAILY 08/15/19 09/17/19 History tiotropium bromide 18 mcg capsule 1 cap INHALATION DAILY #90 puffs 09/02/19 09/17/19 Rx with inhalation device fluticasone propionate [Flonase 2 spray INTRANASAL DAILY 09/18/19 09/18/19 History Allergy Relief] Patient History Medical History COPD with emphysema Surgical History H/O eye surgery Family History Other Diabetes Hypertension Stroke Social History Preferred Language: Italian Communication Ability: Effective Beliefs That Will Affect Care: None marital status: Current Living Situation: Spouse current occupational status: retired Other Information That Helps Us Care for You: No Feels Safe at Home: Yes Safety Concerns: Feels Safe At This Time Smoking Status: Former smoker Hx Alcohol Use: Yes Alcohol type: beer, wine and hard liquor Hx Substance Use: No Review of Systems Constitutional: no fever and no fatigue Eyes: no worsening vision Ear, Nose, Mouth, Throat: + bleeding gums (occasionally when he brushes his teeth); no epistaxis Respiratory: no cough and no dyspnea Cardiovascular: as per Subjective / HPI Gastrointestinal: no abdominal pain and no blood in stools Genitourinary: no dysuria and no hematuria Musculoskeletal: no joint pain and no swelling Integumentary: no rash Scattered, small bruises on his arms Neurologic: + syncope; no headache(s) Hematologic / Lymphatic: no easy bleeding and no easy bruising Physical Exam Constitutional: comfortable; no acute distress ENMT: external ear and nose normal, oropharynx normal Respiratory: normal respiratory effort, lungs clear to auscultation Cardiovascular: RRR, no murmur, no edema Gastrointestinal (Abdomen): Inspection/Auscultation: normal bowel sounds; abdomen not distended Percussion/Palpation: abdomen soft; abdomen nontender Skin: no rashes, warm and dry Small ecchymosis on his right thumb Psychiatric: A+Ox3, euthymic affect Lymphatic: no cervical or axillary lymphadenopathy Results & Data Vital Signs (Past 12 Hours) Vital Signs Temp Pulse Pulse Resp BP Pulse Ox 09/18/19 11:34 36.9 C 62 19 164/93 H 96 09/18/19 07:55 36.7 C 65 19 175/95 H 95 09/18/19 07:24 62 09/18/19 04:15 36.6 C 59 L 16 165/90 H 94 Laboratory Results Laboratory Results - last 24 hr 09/17/19 09/17/19 09/17/19 16:45 16:45 16:45 WBC 8.07 RBC 4.53 L Hgb 13.0 L Hct 39.1 L MCV 86.3 MCH 28.7 MCHC 33.2 RDW Std Deviation 43.0 RDW Coeff of Princess 13.6 Plt Count 48 L MPV 10.7 H Immature Gran % (Auto) 1.6 Neut % (Auto) 45.4 Lymph % (Auto) 18.2 [place] % (Auto) 34.0 Eos % (Auto) 0.6 Baso % (Auto) 0.2 Immature Gran # (Auto) 0.13 H Neut # (Auto) 3.66 Lymph # (Auto) 1.47 [place] # (Auto) 2.74 H Eos # (Auto) 0.05 Baso # (Auto) 0.02 Platelet Estimate CAC D-Dimer 1150 H* Sodium 141 Potassium 4.0 Chloride 111 H Carbon Dioxide 25 Anion Gap 5.0 BUN 14 Creatinine 1.22 Est Cr Clr Drug Dosing 51.7 Est GFR ( Amer) 62.7 Est GFR (Non-Af Amer) 54.1 BUN/Creatinine Ratio 11.2 Glucose 90 Estimat Average Glucose Hemoglobin A1c Calcium 8.6 Magnesium 2.1 Total Bilirubin 0.6 AST 29 ALT 32 Alkaline Phosphatase 50 Troponin I < 0.015 Total Protein 7.4 Albumin 3.8 Globulin 3.6 Albumin/Globulin Ratio 1.1 Triglycerides Cholesterol LDL Cholesterol, Calc VLDL Cholesterol, Calc HDL Cholesterol Cholesterol/HDL Ratio Prostate Specific Ag TSH 2.170 Urine Color Urine Appearance Urine pH Ur Specific [place] Urine Protein Urine Glucose (UA) Urine Ketones Urine Blood Urine Nitrite Urine Bilirubin Urine Urobilinogen Ur Leukocyte Esterase Lyme Disease IgG Ab Lyme Disease IgM Ab 09/17/19 09/17/19 09/18/19 17:40 21:06 02:53 WBC RBC Hgb Hct MCV MCH MCHC RDW Std Deviation RDW Coeff of Princess Plt Count MPV Immature Gran % (Auto) Neut % (Auto) Lymph % (Auto) [place] % (Auto) Eos % (Auto) Baso % (Auto) Immature Gran # (Auto) Neut # (Auto) Lymph # (Auto) [place] # (Auto) Eos # (Auto) Baso # (Auto) Platelet Estimate D-Dimer Sodium 141 Potassium 4.1 Chloride 108 H Carbon Dioxide 28 Anion Gap 5.0 BUN 11 Creatinine 1.20 Est Cr Clr Drug Dosing 52.5 Est GFR ( Amer) 64.0 Est GFR (Non-Af Amer) 55.2 BUN/Creatinine Ratio 9.3 L Glucose 102 H Estimat Average Glucose Hemoglobin A1c Calcium 8.8 Magnesium Total Bilirubin 0.8 AST 25 ALT 30 Alkaline Phosphatase 47 Troponin I 0.046 H* 0.040 Total Protein 7.1 Albumin 3.8 Globulin 3.3 Albumin/Globulin Ratio 1.2 Triglycerides 113 Cholesterol 144 LDL Cholesterol, Calc 86 VLDL Cholesterol, Calc 23 HDL Cholesterol 35 Cholesterol/HDL Ratio 4 Prostate Specific Ag 0.425 TSH Urine Color Yellow Urine Appearance Clear Urine pH 7.0 Ur Specific [place] 1.009 Urine Protein Negative Urine Glucose (UA) Negative Urine Ketones Negative Urine Blood Negative Urine Nitrite Negative Urine Bilirubin Negative Urine Urobilinogen Negative Ur Leukocyte Esterase Negative Lyme Disease IgG Ab Lyme Disease IgM Ab 09/18/19 09/18/19 09/18/19 02:53 02:53 12:03 WBC 10.70 RBC 4.53 L Hgb 13.0 L Hct 38.7 L MCV 85.4 MCH 28.7 MCHC 33.6 RDW Std Deviation 42.6 RDW Coeff of Princess 13.8 Plt Count 47 L MPV 11.2 H Immature Gran % (Auto) 1.0 Neut % (Auto) 49.2 Lymph % (Auto) 28.7 [place] % (Auto) 20.4 Eos % (Auto) 0.6 Baso % (Auto) 0.1 Immature Gran # (Auto) 0.11 H Neut # (Auto) 5.27 Lymph # (Auto) 3.07 [place] # (Auto) 2.18 H Eos # (Auto) 0.06 Baso # (Auto) 0.01 Platelet Estimate D-Dimer Sodium Potassium Chloride Carbon Dioxide Anion Gap BUN Creatinine Est Cr Clr Drug Dosing Est GFR ( Amer) Est GFR (Non-Af Amer) BUN/Creatinine Ratio Glucose Estimat Average Glucose Pending Hemoglobin A1c Pending Calcium Magnesium Total Bilirubin AST ALT Alkaline Phosphatase Troponin I Total Protein Albumin Globulin Albumin/Globulin Ratio Triglycerides Cholesterol LDL Cholesterol, Calc VLDL Cholesterol, Calc HDL Cholesterol Cholesterol/HDL Ratio Prostate Specific Ag TSH Urine Color Urine Appearance Urine pH Ur Specific [place] Urine Protein Urine Glucose (UA) Urine Ketones Urine Blood Urine Nitrite Urine Bilirubin Urine Urobilinogen Ur Leukocyte Esterase Lyme Disease IgG Ab Negative Lyme Disease IgM Ab Negative
--- NOTE | 2019-09-18 19:22 | Ultrasound Report ---
US abdomen complete CLINICAL HISTORY: Thrombocytopenia evaluate splenic size COMPARISON STUDY: No previous studies for comparison. FINDINGS: The pancreas was not visualized. The IVC was patent. There is no evidence of abdominal aortic aneurysm. No gallstones are identified. No focal hepatic masses are visualized. The liver measures 17.3 cm in length. There is no ductal dilatation. The common bile duct measured 4 mm. The spleen is normal in size measuring 10.1 cm. The right kidney measures 9.3 cm in length. The left kidney measured 10.1 cm in length. There is no h ydronephrosis. IMPRESSION: 1. Nondiagnostic evaluation of the pancreas 2. Otherwise unremarkable abdominal ultrasound. No evidence of splenomegaly Electronically signed by: Osorio Lara M.D. 09/18/2019 7:20 PM
[2019-09-19 05:50] LABS: Estimated Average Glucose 128 mg/dl; Hemoglobin A1C 6.1 % (4.5-5.6)
[2019-09-19 07:34] LABS: Hematocrit (blood only) 40.3 % (42-52); Hemoglobin 13.4 g/dL (14.0-18.0); Mean Corpuscular Hemoglobin 28.6 pg (25-34); Mean Corpuscular Hgb Conc 33.3 g/dL (32-36); Mean Corpuscular Volume 86.1 fL (80-100); RDW Standard Deviation 43.7 fL (36.4-46.3); Red Blood Count 4.68 M/uL (4.7-6.1); White Blood Count 9.18 K/uL (4.8-10.8)
[2019-09-19 07:38] LABS: Mean Platelet Volume 10.5 fL (7.4-10.4); Platelet Count 45 K/uL (130-400)
[2019-09-19 08:02] LABS: Basophils # (auto) 0.01 K/uL (0-0.2); Basophils % (auto) 0.1 %; Eosinophils # (auto) 0.07 K/uL (0-0.5); Eosinophils % (auto) 0.8 %; Immature Granulocytes # (auto) 0.06 K/uL (0.00-0.02); Immature Granulocytes % (auto) 0.7 %; Lymphocytes # (auto) 1.44 K/uL (1.2-3.4); Lymphocytes % (auto) 15.7 %; Neutrophils % (auto) 45.7 %
[2019-09-19 08:08] LABS: Albumin Level 3.6 gm/dl (3.4-5.0); BUN Creatinine Ratio 11.7 (10-20); Calcium 8.9 mg/dl (8.5-10.1); Creatinine Clr Calc Pharmacy 43.1 ml/min; Est GFR (African American) 51.3; Est GFR (Non-African American) 44.3; Potassium 4.1 mmol/L (3.5-5.1)
[2019-09-19 08:18] LABS: Bilirubin,Total 0.8 mg/dl (0.2-1); Globulin 3.7 gm/dl (2.5-4.0); Total Protein 7.3 gm/dl (6.4-8.2)
[2019-09-19] MEDS: LISINOPRIL 20 MG TAB PO SCH (08:26)
[2019-09-19] MEDS: TIOTROPIUM BROMIDE 5 PUFF/90 MCG INH INH SCH (08:28)
[2019-09-19] MEDS: ASPIRIN 81 MG ECTAB PO SCH (08:28)
--- NOTE | 2019-09-19 08:53 | Progress Note ---
DATE: 09/19/2019 DIAGNOSES: 1. Mild thrombocytopenia. 2. Syncope. 3. New onset left bundle branch block. 4. Shortness of breath/COPD. SUBJECTIVE: Mr. Haque is a pleasant 83-year-old gentleman seen and examined at bedside this morning. Dr. Lopez had seen him on original consultation or unexplained thrombocytopenia. The patient reports no bleeding issues. He alludes to the fact that Dr. Mcduffie had mentioned to him in the past of low platelets, but never formally saw Hematology. Examination of his past 3 peripheral counts demonstrate relative stability with his platelets between 40,000 and 50,000. He is feeling much better and suspect he will be discharged soon. Nursing reports no overnight difficulties. Mr. Haque has no complaints of pain or discomfort at present. OBJECTIVE: GENERAL: A very pleasant 83-year-old gentleman in no acute distress. VITAL SIGNS: Temperature 36.5, pulse 64, respiratory rate 17, blood pressure 157/89. SKIN: Without rash or lesion. No evidence of petechiae. There is a small ecchymosis over the base of his right thumb. HEENT: Oral mucosa without erythema or ulceration. HEART: Regular rate and rhythm. LUNGS: Clear to auscultation bilaterally. ABDOMEN: Soft, nontender, nondistended. EXTREMITIES: No clubbing, cyanosis or edema. NEUROLOGIC: He is grossly intact. LABORATORY DATA: WBC count 9180, hemoglobin 13.4, platelet count 45,000. Sodium 139, potassium 4.1, chloride 108, carbon dioxide 26, creatinine 1.44, BUN 17. IMPRESSION: 1. Thrombocytopenia, most likely chronic. 2. Syncope. 3. Left bundle branch block. 4. Chronic obstructive pulmonary disease/shortness of breath. PLAN: I had a nice conversation with Mr. Haque at bedside today. He informed me at some point his primary care physician identified him as being mildly thrombocytopenic. Difficult to determine baseline per se. However, since he has been hospitalized, his platelets have really not moved to any great extent. Again, I agree with Dr. Lopez to evaluate his liver and spleen, sequestration is certainly part of the differential. Increased destruction via antibody or decreased production. His medication list is not extensive and do not believe there is any inciting agents in that regard. I think at the end` of the day, it would be better just to set him up for outpatient followup. I will be more than happy to see him periodically specifically to trend his platelet count moving forward. Mr. Haque is agreeable to that approach. Thank you for allowing us to participate in his care. OCTAVIANO
[2019-09-19] MEDS: DOCUSATE SODIUM 100 MG CAP PO SCH (12:09)
[2019-09-19] MEDS: MULTIVITAMIN TAB PO SCH (12:09)
[2019-09-19] MEDS: OMEGA-3 (PURIFIED FISH OIL) 1 GM CAP PO SCH (12:10)
[2019-09-19] MEDS: PANTOprazole 40 MG TAB PO SCH (12:10)
[2019-09-19] MEDS: FLUTICASONE PROPIONATE NA SPR 16 GM BTL SCH (12:13)
--- NOTE | 2019-09-19 21:15 | Hospitalist Progress Note ---
Date of Service September 19, 2019 Assessment & Plan (1) Syncope: Took place at [facility] prior to [employer] football game. Syncope lasted seconds. No significant prodromal symptoms. To date MRI brain, CTA chest, telemetry, dopplers of legs, echocardiogram, lyme titers - all negative or normal. Because of new onset LBBB and minimally elevated troponin he is to undergo nuclear stress test; part one tonight, part 2 in am. If stress is negative - outpatient 30-day event monitor to r/o arrhythmia as cause of syncopal event? (2) New onset left bundle branch block (LBBB): Echo w/ preserved EF Lyme testing negative Nuclear stress test pending If stress is negative LBBB is likely from deterioration of conduction system (3) SOB (shortness of breath): Resolved NO evidence of PE or ACS Does have baseline COPD - symptoms could have been from such (4) Thrombocytopenia: Platelet count 40s while here. Check b12/folate in am. Anaplasmosis DNA pending but doubt infection-related. Platelet count in 2017 was mildly low in the 90s. This appears chronic but getting worse. ITP? Has significant monocytosis on differential - will he need bone marrow bx as outpatient? defer to heme/onc. repeat cbc in am for stability. 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 Continue tiotropium bromide daily. Only mild CESPEDES at baseline. (10) CKD (chronic kidney disease), stage III: Cr today 1.4 repeat BMP am for stability (11) Elevated troponin: Likely myocardial demand ischemia rather than true ACS [id number] nuclear stress test is planned to r/o CAD (12) DVT prophylaxis: defer on chemical means unless he stays beyond tomorrow updated if stress is negative d/c home on Thursday? Subjective patient feels well. was at bedside during the visit. denied any syncope, presyncope, dizziness or lightheadedness since admission. no chest pain. patient states they were just in [place] last week and they walked up to 5 miles each day without any significant limitation. he has minimal amount of CESPEDES from COPD but otherwise no chest pains or other cardiopulmonary symptoms. drinks etoh rarely. Review of Systems Constitutional: no fever, no chills, no fatigue and no anorexia Respiratory: no cough, no chest congestion and no dyspnea Cardiovascular: no chest pain, no orthopnea and no paroxysmal nocturnal dyspnea Gastrointestinal: no abdominal pain Physical Exam Constitutional: well developed and well nourished; no acute distress ENMT: external ear and nose normal, oropharynx normal Respiratory: normal respiratory effort, lungs clear to auscultation Cardiovascular: Rate/Rhythm: regular rate and regular rhythm Heart Sounds: normal S1 and normal S2 (some wider splitting); no murmur Vessels: posterior tibial pulses present and dorsalis pedis pulses present; no JVD Extremities: no edema Gastrointestinal (Abdomen): normal bowel sounds, soft, nontender, no hepatosplenomegaly Neurologic: moves all extremities; no focal motor deficits Psychiatric: A+Ox3, euthymic affect Results & Data Vital Signs (Past 12 Hours) Vital Signs Temp Pulse Resp BP BP Pulse Ox 09/19/19 19:38 36.7 C 69 18 125/77 93 09/19/19 15:27 36.5 C 75 20 171/90 H 93 09/19/19 12:00 36.8 C 67 18 136/82 93 Laboratory Results Laboratory Results - last 24 hr 09/18/19 09/18/19 09/19/19 02:53 13:51 07:15 WBC 9.18 RBC 4.68 L Hgb 13.4 L Hct 40.3 L MCV 86.1 MCH 28.6 MCHC 33.3 RDW Std Deviation 43.7 RDW Coeff of Princess 14.0 Plt Count 45 L MPV 10.5 H Immature Gran % (Auto) 0.7 Neut % (Auto) 45.7 Lymph % (Auto) 15.7 [place] % (Auto) 37.0 Eos % (Auto) 0.8 Baso % (Auto) 0.1 Immature Gran # (Auto) 0.06 H Neut # (Auto) 4.20 Lymph # (Auto) 1.44 [place] # (Auto) 3.40 H Eos # (Auto) 0.07 Baso # (Auto) 0.01 Peripher Smr Path Cons Sodium Potassium Chloride Carbon Dioxide Anion Gap BUN Creatinine Est Cr Clr Drug Dosing Est GFR ( Amer) Est GFR (Non-Af Amer) BUN/Creatinine Ratio Glucose Estimat Average Glucose 128 Hemoglobin A1c 6.1 H Calcium Total Bilirubin AST ALT Alkaline Phosphatase Total Protein Albumin Globulin Albumin/Globulin Ratio Specimen Hemolysis A. phagocytophilum DNA 09/19/19 09/19/19 07:15 07:15 WBC RBC Hgb Hct MCV MCH MCHC RDW Std Deviation RDW Coeff of Princess Plt Count MPV Immature Gran % (Auto) Neut % (Auto) Lymph % (Auto) [place] % (Auto) Eos % (Auto) Baso % (Auto) Immature Gran # (Auto) Neut # (Auto) Lymph # (Auto) [place] # (Auto) Eos # (Auto) Baso # (Auto) Peripher Smr Path Cons Sodium 139 Potassium 4.1 Chloride 108 H Carbon Dioxide 26 Anion Gap 6.0 BUN 17 D Creatinine 1.44 H Est Cr Clr Drug Dosing 43.1 Est GFR ( Amer) 51.3 Est GFR (Non-Af Amer) 44.3 BUN/Creatinine Ratio 11.7 Glucose 109 H Estimat Average Glucose Hemoglobin A1c Calcium 8.9 Total Bilirubin 0.8 AST 27 ALT 28 Alkaline Phosphatase 50 Total Protein 7.3 Albumin 3.6 Globulin 3.7 Albumin/Globulin Ratio 1.0 Specimen Hemolysis A. phagocytophilum DNA Pending PG Care Time/CCT Total # of Minutes Spent Total Time Spent with Patient: Total time spent is greater than 50% in coordination of care (as documented) at patient's floor/unit and/or counseling patient: (1) BPH (benign prostatic hyperplasia) Lower urinary tract symptom presence: symptoms absent Qualified Code(s): N40.0 - Benign prostatic hyperplasia without lower urinary tract symptoms (2) Sleep apnea Sleep apnea type: obstructive Qualified Code(s): G47.33 - Obstructive sleep apnea (adult) (pediatric) (3) Hyperlipidemia Hyperlipidemia type: mixed hyperlipidemia Qualified Code(s): E78.2 - Mixed hyperlipidemia (4) Syncope Syncope type: unspecified Qualified Code(s): R55 - Syncope and collapse (5) COPD (chronic obstructive pulmonary disease) COPD type: unspecified COPD Qualified Code(s): J44.9 - Chronic obstructive pulmonary disease, unspecified
[2019-09-20 07:30] LABS: Hematocrit (blood only) 39.1 % (42-52); Hemoglobin 12.9 g/dL (14.0-18.0); Mean Corpuscular Hemoglobin 28.5 pg (25-34); Mean Corpuscular Volume 86.3 fL (80-100); RDW Standard Deviation 44.2 fL (36.4-46.3); Red Blood Count 4.53 M/uL (4.7-6.1); White Blood Count 9.82 K/uL (4.8-10.8)
[2019-09-20 07:51] LABS: Basophils # (auto) 0.01 K/uL (0-0.2); Basophils % (auto) 0.1 %; Eosinophils # (auto) 0.08 K/uL (0-0.5); Eosinophils % (auto) 0.8 %; Immature Granulocytes # (auto) 0.05 K/uL (0.00-0.02); Immature Granulocytes % (auto) 0.5 %; Lymphocytes # (auto) 2.72 K/uL (1.2-3.4); Lymphocytes % (auto) 27.7 %; Monocytes # (auto) 2.25 K/uL (0.11-0.59); Monocytes % (auto) 22.9 %; Neutrophils # (auto) 4.71 K/uL (1.4-6.5); Platelet Count 50 K/uL (130-400); Platelet Estimate Decreased (Normal)
[2019-09-20 08:00] LABS: BUN Creatinine Ratio 16.9 (10-20); Calcium 8.9 mg/dl (8.5-10.1); Creatinine Clr Calc Pharmacy 42.5 ml/min; Est GFR (African American) 50.5; Est GFR (Non-African American) 43.5; Potassium 4.1 mmol/L (3.5-5.1)
[2019-09-20] MEDS: ASPIRIN 81 MG ECTAB PO SCH (08:00)
[2019-09-20] MEDS: PANTOprazole 40 MG TAB PO SCH (08:00)
[2019-09-20] MEDS: FLUTICASONE PROPIONATE NA SPR 16 GM BTL SCH (08:00)
[2019-09-20] MEDS: DOCUSATE SODIUM 100 MG CAP PO SCH (08:00)
[2019-09-20] MEDS: MULTIVITAMIN TAB PO SCH (08:00)
[2019-09-20] MEDS: OMEGA-3 (PURIFIED FISH OIL) 1 GM CAP PO SCH (08:00)
[2019-09-20] MEDS: LISINOPRIL 20 MG TAB PO SCH (08:01)
[2019-09-20] MEDS: TIOTROPIUM BROMIDE 5 PUFF/90 MCG INH INH SCH (08:02)
--- NOTE | 2019-09-20 09:44 | Cardiology Progress Note ---
Date of Service September 20, 2019 Assessment & Plan (1) Syncope: He presents with a single episode of syncope, it occurred following moderate activity however he goes to the gym regularly and is used to being very active. He thinks it is very unusual for this to have happened and it occurred essentially without warning. There are several possibilities, one being the presence of his first-degree AV block and left bundle branch block suggesting significant AV conduction disease and possible heart block. Another possibility is ischemia, possibly leading to heart block, since his cardiac enzymes were elevated. Another possibility is hypoxia however he does not think he was significantly short of breath compared to prior times when he exerts himself at the gym and this is never happened before. So far we have not come up with an etiology of his syncope. I did perform the treadmill test today and he did well, with no evidence of AV block with exercise or afterwards. Imaging is still pending for ischemia. He has had nothing on telemetry to suggest an etiology. If we can cannot come up with an etiology we need to consider some form of monitoring at discharge, or we can consider an implantable loop recorder which I could probably do this afternoon. I am going to keep him n.p.o. now in case we want to do that. (2) LBBB (left bundle branch block): He has a newly diagnosed left bundle branch block but I do not know if it is new. He is never had an electrocardiogram that he is aware of and we do not have records of one. It is conceivable this is long-standing or that it is recently progressive. Reversible causes of left bundle branch block include Lyme disease, his test was negative here. It could be intrinsic conduction system disease, it is possible it is ischemia however he has minimal evidence for that. Stress myocardial perfusion images are pending. (3) SOB (shortness of breath): He has significant shortness of breath and does have COPD and a prior smoking history, however he exerts himself regularly and has never had lightheadedness or syncope before. It seems unlikely but possible that this was due to hypoxia and conduction system disease or sinus node disease. The stress test today was stopped primarily for shortness of breath however he was approaching his target heart rate (he achieved about 81%) and he did not have an arrhythmia identified or hypotension or lightheadedness. (4) Elevated troponin I level: He did have an elevated troponin, that increased slightly before dropping back toward normal after admission. This is more suggestive of demand ischemia than it is of an acute myocardial infarction. He does not have a history of coronary disease nor does he have exertional chest discomfort however he still could have coronary disease. His stress images should be available today, if they show significant ischemia we may have to consider catheterization. I did do a exercise nuclear study because I wanted the stress information (since that is when he had his symptoms) which does make the test a little bit harder to interpret but I would be looking for gross abnormalities not minor ones on the test. Subjective He has been feeling well since admission. He has had no further syncope and he has no chest discomfort or palpitations. Physical Exam Physical Exam: Constitutional: Alert, cooperative and in no distress. Pulmonary: Clear to auscultation bilaterally. Cardiac: Regular rhythm with no murmur, gallop or rub. Abdomen: Soft, nontender with normal bowel sounds. Extremities: No edema. Skin: No rash, ecchymoses or petechiae. Results & Data Vital Signs (Past 12 Hours) Vital Signs Temp Pulse Pulse Resp BP BP Pulse Ox 09/20/19 07:52 36.6 C 72 18 122/69 96 09/20/19 04:09 36.8 C 61 22 121/69 96 09/20/19 00:05 72 09/19/19 23:41 37 C 67 18 115/68 94 Diagnostic Findings Echo: Normal left ventricular function, borderline left ventricular hypertrophy Telemetry: Sinus rhythm, generally in the 60s, no AV block or other arrhythmias PG Care Time/CCT Total # of Minutes Spent Total Time Spent with Patient: Total time spent is greater than 50% in coordination of care (as documented) at patient's floor/unit and/or counseling patient: (1) Syncope Syncope type: unspecified Qualified Code(s): R55 - Syncope and collapse
[2019-09-20 10:41] LABS: Vitamin B12 798 pg/ml (211-911)
[2019-09-20 10:42] LABS: Folate (Folic Acid) > 24.00 ng/ml (>5.38)
[2019-09-20] MEDS ORDERED: CEFAZOLIN 250 MG/ML 1 GM VIAL ONE (14:13)
[2019-09-20] MEDS ORDERED: LIDOCAINE HCL 1% 20 ML VIAL ONE (14:15)
[2019-09-20] MEDS ORDERED: CEFAZOLIN 250 MG/ML 1 GM VIAL IV ONE (14:28)
[2019-09-20] MEDS ORDERED: LACTATED RINGER'S 1,000 ML IV SCH (14:30)
[2019-09-20] MEDS ORDERED: BACITRACIN OINT 0.9 GM PKT ONE (14:42)
[2019-09-20] MEDS ORDERED: ACETAMINOPHEN 325 MG TAB PO PRN (14:49)
--- NOTE | 2019-09-20 14:49 | Operative Report ---
PG Post Operative Report Pre & Post Diagnosis Operation Date: 09/20/19 14:15 Preoperative diagnosis: Syncope Postoperative diagnosis: Same I identified the patient and participated in the time-out.: Yes Procedure Operation Date: 09/20/19 14:15 Actual Procedures p Loop Insertion - Robert Cruz MD Surgeon Robert Cruz MD Breast Buffer None Estimated Blood Loss 3 Findings Consistent with Post-Op Diagnosis Specimens None Anesthesia Type Local Complications none Disposition Accompanied Patient To Recovery: No Disposition: PCU Description of Procedure After obtaining informed consent for the procedure, the patient was brought to [facility] laboratory having had nothing by mouth after midnight. The patient was prepped and draped in the standard sterile manner for a loop recorder implantation. An area at the fourth left intercostal space and 1 cm left of the left sternal border was infiltrated with 1% lidocaine local anesthetic and a 0.5 cm incision was made through the skin. Using the loop recorder insertion tool the loop recorder was inserted through the incision at a 45 downward and leftward angle. The incision was closed with a subcutaneous continuous closure of 4-0 Vicryl followed by a running subcuticular skin closure of 4-0 Vicryl. Steri-Strips were applied and bacitracin ointment was placed on the incision. A dressing was applied. I attest to the content of the Intraoperative Record and any orders documented therein. Any exceptions are noted below.
--- NOTE | 2019-09-20 17:54 | Discharge Summary ---
Date of Service date of admission - September 17, 2019 date of discharge - September 20, 2019 Admission HPI Per Admitting Provider Patient is a 83 years old male will past medical history of COPD, hypertension, hyperlipidemia, impaired fasting glucose, BPH was brought by EMS to the emergen cy room after the episodic syncope that occurred while walking into the football stadium about 1 hour ago. Patient walked up the road at [facility] and then he was walking up the ramp at the stadium when he became short of breath. Patient grabbed onto the railing and passed out for several seconds. Patient family was next to him and they noted that he fell on his knees and then went down on the ground but he did not hit his head. The patient stated that the patient was only unconscious for seconds or 2. Patient states that the symptoms are not relieved nor exacerbated by anything specific. Patient denies drinking or smoking at the time when the incident happened. Patient reports experiencing shortness of breath but denies chest pain. Patient denies fever, chills, chest pain, abdominal pain, frequency, urgency was sent patient arrived to the emergency room as he was not short of breath anymore and he was fully alert and oriented and giving the proper history. Patient is very pleasant in person and said that he was only taking his inhaler and usually he was not taking any other of his medications. Patient uses CPAP at night. Labs are reviewed: WBCs 8.07, hemoglobin 13, hematocrit 39.1 platelets 48, D-dimers 1150, sodium 141, potassium 4, magnesium 2.1, AST 29, ALT 32, alkaline phosphatase 50., Chloride 111, anion gap 5, BUN 14, creatinine 1.22, GFR 54.1, initial troponin was - 0.015, the second troponin was 0.0 46, TSH 2.17. CTA of the chest no evidence of pulmonary embolism. Very slight bibasilar interstitial prominence. Lungs otherwise appear clear with no focal infiltrate. Initial EKG is showing sinus rhythm with with first-degree AV block and left bundle branch block. Principal Diagnosis syncope - exact etiology uncertain; concern for arrhythmia as cause Discharge Exam Constitutional well developed and well nourished; no acute distress ENMT external ear and nose normal, oropharynx normal Respiratory normal respiratory effort, lungs clear to auscultation Cardiovascular Rate/Rhythm: regular rate and regular rhythm Heart Sounds: normal S1 and normal S2 (some wider splitting); no murmur Vessels: posterior tibial pulses present and dorsalis pedis pulses present; no JVD Extremities: no edema Chest (Breasts) Additional Comments: dressing intact over upper chest Gastrointestinal (Abdomen) normal bowel sounds, soft, nontender, no hepatosplenomegaly Neurologic moves all extremities; no focal motor deficits Psychiatric A+Ox3, euthymic affect Discharge Data Allergies Allergy/AdvReac Type Severity Reaction Status Date / Time albuterol Allergy Verified 09/17/19 16:56 Consultations 1. cardiology - Robert Cruz MD 2. hematology - Bjorn Wong DO Procedures Performed Operation Date: 09/20/19 Implant Cardiac Event Recorder(Left) - Robert Cruz MD Ordered Studies 1. CT angio chest PE protocol - negative for PE. 2. MRI brain - negative for stroke. 3. b/l LE venous dopplers - negative for DVT. 4. u/s abdomen - no splenomegaly; 5. lexiscan nuclear stress test - Conclusions: 1. No definite scintigraphic evidence of a prior myocardial infarction or stress-induced myocardial ischemia. 2. No exercise-induced chest pain. 3. No EKG changes. 4. Normal left ventricular systolic function without wall motion abnormality. Left ventricular EF is 67 %. 6. echocardiogram - * EF 60% * normal valve function * no wall motion abnormalities Hospital Course (1) Syncope: Took place at [facility] [place] to [employer] football game. Syncope lasted seconds. No significant prodromal symptoms. MRI brain, CTA chest, telemetry, dopplers of legs, echocardiogram, lyme titers, lexiscan nuclear stress test - all negative or normal. No specific etiology was identified for the syncope with this extensive work-up. In light of his LBBB there was considerable concern that arrhythmia was the cause of his event. Thus, Dr Robert Cruz on day of discharge implanted a loop recorder. Mr Haque will follow-up with Dr Cruz post-discharge for ongoing surveillance. (2) New onset left bundle branch block (LBBB): Echo w/ preserved EF and normal LV wall motion. Lyme testing negative. Nuclear stress test negative for ischemia. Thus, LBBB is likely from deterioration of conduction system. Loop recorder implanted to rule out arrhythmia as cause of syncope. (3) SOB (shortness of breath): Had this symptom on day of admission. Resolved promptly and did not recur. O2 sats were normal his entire stay. NO evidence of PE or ACS. Does have baseline COPD - symptoms could have been from such. (4) Thrombocytopenia: Platelet count 40s-50 while here. Anaplasmosis DNA testing was negative. B12/folate were normal. Platelet count in 2017 was mildly low in the 90s. This appears chronic but count has decreased over the last 1-2 years. ITP? Seen by hematology/oncology - Dr Wong. Outpatient f/u recommended with him. Has significant monocytosis on differential - will he need bone marrow bx as outpatient? Defer to heme/onc. Platelet count was 50 on discharge. He was advised to STOP aspirin use and AVOID NSAIDs. (5) Hyperlipidemia: cholesterol 144, LDL 86, HDL 35 on lipid profile (6) Impaired fasting glucose: A1c 6.2, pre diabetic diet control for now (7) BPH (benign prostatic hyperplasia): no symptoms at this time (8) Sleep apnea: Continue CPAP HS (9) COPD (chronic obstructive pulmonary disease): Stable. Continue tiotropium bromide daily. Only mild CESPEEDS at baseline. (10) CKD (chronic kidney disease), stage III: Cr stable during the stay Cr 1.4 at discharge (11) Elevated troponin: Likely myocardial demand ischemia in setting of syncope. Nuclear stress test was negative/normal. (12) HTN (hypertension): Numerous readings while hospitalized were high. He took BP medication in the past. He was initiated on lisinopril which controlled his BPs nicely. He will d/c home on 10mg daily of lisinopril. Total Time Total Time Spent Total Time Spent (In Minutes): 45 Total Time Includes: Examination of the Patient, Discharge Planning, Medication Reconciliation and Communication With Other Providers Discharge Plan Discharge Items Patient Disposition: Home - Self-Care Reason For Visit: syncope (passing out spell) Discharge Diagnosis: 1. syncope - exact cause uncertain. Stroke, heart attack, and blood clots of the lungs ruled out as potential causes. Loop recorder implanted to determine if an abnormal heart rhythm caused your passing out spell. 2. low platelets (thrombocytopenia) - chronic, but worse in comparison to the last 1-2 years. Follow-up with hematology (blood specialist) needed. Discharge platelet count was 50. 3. newly-discovered left bundle branch block ("LBBB"). Activity: Resume your previous activity Bathing Comment: keep loop recorder site clean and dry; ok to shower but NO tub baths Driving/Machine Use: Resume 3 days after discharge Non-emergency contact: Primary Care Provider and Cancer Spec Call non-emergency contact if: you have any medication questions, your symptoms worsen, you have a fever, your wound has increased redness, your wound has increased drainage and your wound pain has increased Follow-up/Referrals: Ivan Mcduffie MD [Primary Care Provider] - 09/27/19 11:00 am (Please, follow up at Dr. Ivan Mcduffie's office with his associate, Marissa Quiñonez PA-C, on ThursdaySeptember 27 at 11:00 am. *If you need to change this appointment, call the office at [phone].) Robert Cruz MD [Physician] - 09/22/19 10:15 am (Please, follow up at [facility] Office on September 22 at 10:15 am. *The office is located in [address] of [facility], next to this [facility]. If you have any questions, call the office at [phone].) Bjorn Wong DO [Physician] - (Please, follow up with Dr. Wong ([employer]). *A nurse from his office will call you with the appointment information. The office is located in the rear of this hospital building. You will park BEHIND the hospital in [address] and enter via [facility]. If you have any questions, call the office at [phone].) Diet: Carb Consistent or DM2 and Heart Healthy Addtl Attending Provider Instructions: You were seen for an episode of syncope (passing out) that occurred near [facility]. You underwent extensive testing as noted above (CAT scan of lungs, MRI of the brain, echocardiogram, stress test, ultrasound of your legs, etc). All of these tests were normal or negative. We did not find stroke, heart att ack, congestive heart failure, blood clots of the legs or lungs, etc). We discovered that you have something called a "left bundle branch block." This is an electrical "delay" of the normal flow of electricity through your heart. We also discovered that you have low platelets. This appears to be chronic but it has gotten worse over time. We cannot definitively tell you what caused your passing out event. However, Dr Cruz from cardiology is suspicious that the event may have been from an abnormal heart rhythm. Thus, he placed a small device in your chest called a "loop recorder" that can monitor your heart rhythm at all times. Recommendations - 1. STOP your aspirin due to the low platelets. 2. DO NOT take any iobu-jqv-cktrrna motrin, ibuprofen, naprosyn or alleve. it is OK to take aixm-tys-knqrico tylenol for aches/pains. 3. KEEP THE DRESSING on your chest from the loop recorder in place until Dr Cruz sees you in 2 days. Keep the dressing clean/dry at all times. Sponge bath or showers only at this time -- again keep the dressing dry. DO NOT GET WET. No tub baths. 4. TAKE lisinopril 10mg once daily for your blood pressure. Script sent to [facility] for you. 5. Please check your blood pressure daily at home. Record these, and bring those values to Dr Cruz and Dr Mcduffie to see. 6. If you experience excessive bruising of your skin, nosebleeding, etc please let Dr Mcduffie know right away. This can be a sign of worsening platelets (the count is dropping further). Follow-up -- see separate section. Return to [facility] if -- * you have fevers over 100.5 degrees * you have worsening shortness of breath or chest pain * you have recurrent episodes of passing out * you have redness, drainage or worsening swelling from the loop recorder site * any other concerns Pending Studies at Discharge: No Stand-Alone Forms: My [facility], Smoking Cessation Medications and DC Order Prescriptions: New lisinopril 10 mg tablet 10 mg PO DAILY Qty: 30 RF: 1 Continued docusate sodium 100 mg capsule 100 mg PO DAILY RF: 0 omega-3 acid ethyl esters 1 gram capsule 1 cap PO DAILY RF: 0 garlic 500 mg capsule 500 mg PO DAILY RF: 0 multivitamin [Daily Multi-Vitamin] tablet 1 tab PO DAILY RF: 0 omeprazole 20 mg capsule,delayed release(DR/EC) 20 mg PO DAILY RF: 0 potassium 99 mg tablet 99 mg PO DAILY RF: 0 tiotropium bromide 18 mcg capsule, w/inhalation device 1 cap inhalation DAILY Qty: 90 RF: 3 fluticasone propionate [Flonase Allergy Relief] 50 mcg/actuation [place],Suspension 2 spray INTRANASAL DAILY RF: 0 Discontinued aspirin 81 mg tablet 81 mg PO DAILY RF: 0 No Action benzonatate 200 mg capsule 200 mg PO TID PRN (Reason: cough) Qty: 30 RF: 0 Discharge Orders: Discharge Order (Routine); Ordered 09/20/19 Ordered By: Lucio Rutledge/Other Patient Handouts: Prediabetes, Syncope Causes, Bundle Branch Block Left, A1C Admission Data Admit Date/Time: 09/18/19 13:17 Attending Provider: Lucio Kumar Admit Provider: Carmen Omalley Primary Care Provider: Ivan Mcduffie Other Providers: Carmen Omalley ; Robert Cruz ; Gino Lopez Other Interventions: Discharge Summary Assessment (RN) Last Done: 09/20/19 17:57 DC Date/Time DO NOT enter until pt leaves facility: 09/20/19 18:42
--- NOTE | 2019-09-21 13:06 | Myocardial Perfusion Study ---
Date of Service September 21, 2019 Myocardial Perfusion Study [facility] Myocardial Perfusion Study Report One day nuclear medicine technetium 99m Cardiolite myocardial perfusion scan Clinical history: This stress test is being performed because of an episode of syncope and chest pain in a patient with a left bundle-branch block. Comparison: None Technique: For the stress portion of the study, 23.7 mCi of technetium 99m Cardiolite IV was injected at 9:25 a.m. on September 20, 2019. Thirty minutes following the injection, imaging of the heart was performed in multiple projections. For the rest portion of the study, 21.2 mCi of technetium 99m Cardiolite was injected IV at 2:30 p.m. on September 20, 2019. One hour following the injection, imaging of the heart was performed in the same projections. Exercise stress test: The patient exercised for 6 minutes and 10 seconds on the standard Jaxson protocol attaining 7.4 METS and a peak heart rate of 81 % predicted maximum. The test was terminated due to fatigue. The patient did not experience chest discomfort. Initial blood pressure was 150/90 and increased to 170/70 at peak exercise. Baseline EKG notes normal sinus rhythm with first-degree AV block and complete left bundle-branch block. There were no significant ST segment changes seen at peak exercise or in the recovery phase. There were no dysrhythmias. Findings: The short axis, vertical long axis, and horizontal long axis images were reviewed in detail. There was reduced tracer uptake in the inferior and septal sadler at both stress and rest. This is likely secondary to the conduction abnormality and does not represent sumaya myocardial ischemia or prior infarcti on. The left ventricle demonstrates normal systolic function without wall motion abnormalities. The left ventricular ejection fraction is 67 %. Conclusions: 1. No definite scintigraphic evidence of a prior myocardial infarction or stress-induced myocardial ischemia. 2. No exercise-induced chest pain. 3. No EKG changes. 4. Normal left ventricular systolic function without wall motion abnormality. Left ventricular ejection fraction is 67 %. Myocardial perfusion codes Indication for Procedure (1) Syncope and collapse: (2) Chest pain syndrome: (3) Abnormal ECG:
== END 2019-09-20 18:42 | disposition home or self-care (01) | DRG 261 ==
LOC: ED 16:09 → 2S 16:09 → SUATTDRO 19:40 → 2S 20:24 → SUATTDRO 09-18 13:17

== ENCOUNTER 2020-03-25 19:41 | Inpatient (IN) ==
--- NOTE | 2020-03-25 20:10 | Emergency Department Note ---
Impression & Plan Syncope and collapse, Abnormal ECG, LBBB (left bundle branch block), Bradycardia ED Provider Note NAME: JAMES ARANGO AGE: 84 SEX: M : 1935 ARRIVES VIA: Walk-In INFORMANT: Patient ED PROVIDER(S): Paulino Ordoñez DO CHIEF COMPLAINT: Syncope HPI: Patient is an 84-year-old male with a past medical history of syncope who presents the ER for syncopal episode. He notes he was walking the dog outside and had no prodromal symptoms and woke up on the ground. He has no complaints with exception that he does have a little bit of nausea now. Prior to this he h ad absolutely no symptoms. He denies any headache, change in vision, chest pain, shortness of breath, nausea vomiting or diarrhea. No dysuria urgency or frequency. No pain throughout his entire body. He notes he does have a loop recorder in place. ROS: See above HPI for pertinent positives & negatives. A total of 10 systems reviewed and were otherwise negative. PAST MEDICAL HISTORY:See Below PAST SURGICAL HISTORY:See Below FAMILY HISTORY:See Below SOCIAL HISTORY:See Below HOME MEDICATIONS:See Below ALLERGIES:See Below VITALS:See Below PHYSICAL EXAMINATION: GENERAL: alert, well appearing, well nourished, no distress, non-toxic HEAD: normal cephalic, atraumatic EYE EXAM: normal conjunctiva, PERRL and EOM's grossly intact OROPHARYNX: no exudate, no erythema, lips, buccal mucosa, and tongue normal and mucous membranes are moist NECK: supple, no nuchal rigidity, no adenopathy, non-tender CHEST: stable to compression anteriorly and posteriorly LUNGS: clear to auscultation. Normal chest wall mechanics HEART: no murmurs, S1 normal and S2 normal ABDOMEN: abdomen soft, non-tender, normo-active bowel sounds, no masses, no rebound or guarding. PELVIS: stable to compression anteriorly and posteriorly BACK: Back is symmetrical on inspection and there is no deformity, no midline tenderness, no CVA tenderness. UPPER EXTREMITIES: full active and passive range of motion of all joints without tenderness to palpation LOWER EXTREMITIES: full active and passive range of motion of all joints without tenderness to palpation NEURO EXAM: Normal sensorium, cranial nerves II-XII intact, normal speech, no weakness of arms, no weakness of legs. No drift. Finger to nose intact. Gross sensation intact. GCS 15. MEDICAL DECISION MAKING: Patient is an 84-year-old male with a past medical history of syncope with a loop recorder that presents the ER for syncopal episode. He had no prodromal symptoms. He has no complaints now. IV was established blood work was obtained. Labs show no significant leukocytosis or anemia. BMP with a creatinine 1.4. LFTs bilirubin was unremarkable. Troponin was negative. TSH unremarkable. Discussed with [employer] rep after interrogation of the loop recorder. They note that he had bradycardia less than 30 followed then his heart rate trended up and then he had a 5-second pause and he had bradycardia again. I was unable to visualize this but this was reported to me by check from [employer]. EKG did show a left bundle. Patient was updated bedside. Labs were unremarkable. He had no other complaints. CT head was negative. Chest x-ray unremarkable. Patient was discussed with hospitalist will be admitted for f urther work-up. Triage Nursing notes reviewed. Prior medical records reviewed Vital Signs: reviewed and remarkable for hypertensive Differential diagnosis: Differential diagnosis includes etiologies such as vasovagal event, infection, hypoglycemia, electrolyte abnormalities, cardiac sources, intracerebral event, toxicologic, neurologic, as well as others were entertained. ER treatment provided: See below Diagnostics interpreted by me: ECG: Sinus rhythm rate of 65 First-degree AV block Left bundle branch block No PVCs DWI in the high lateral leads Normal QTC Cardiac Monitoring: An order was placed for continuous cardiac monitoring. The m onitor shows a rate of 63 with sinus rhythm. Laboratory studies: As stated above and show below. Imaging studies: CT head was unremarkable for any acute pathology Portable AP upright 1 view of the chest was unremarkable Consultation(s): Discussed with Dr. Zuri Alatorre ED COURSE: Procedures: none PDMP:reviewed and no issues Critical Care: None Past Med/Surg History Social History Preferred Language: Macedonian Communication Ability: Effective Beliefs That Will Affect Care: None marital status: Current Living Situation: Spouse current occupational status: retired Feels Safe at Home: Yes Smoking Status: Never smoker Hx Alcohol Use: Yes Alcohol type: beer, wine and hard liquor Hx Substance Use: No Allergies Allergies Allergy/AdvReac Type Severity Reaction Status Date / Time albuterol Allergy Unknown Verified 03/25/20 20:27 Home Meds Home Medications Medication Instructions Recorded Confirmed docusate sodium 100 mg capsule 100 mg PO DAILY cap 07/08/19 03/25/20 multivitamin 1 tab PO DAILY 07/08/19 03/25/20 omega-3 acid ethyl esters 1 gram 1 cap PO DAILY cap 07/08/19 03/25/20 capsule fluticasone propionate [Flonase 2 spray INTRANASAL DAILY 09/18/19 03/25/20 Allergy Relief] Airborne Elderberry Tab 1 tab PO DAILY 03/25/20 03/25/20 polyethylene glycol 3350 [Miralax] 17 g PO DAILY PRN 03/25/20 03/25/20 sodium chloride [Saline Mist] 1 spray INTRANASAL BID PRN 03/25/20 03/25/20 Previous Rx's Medication Instructions Recorded tiotropium bromide 18 mcg capsule 1 cap INHALATION DAILY #90 puffs 09/02/19 with inhalation device telmisartan 20 mg tablet 20 mg PO BID #180 tab 01/09/20 Results & Data (ED) Vital Signs Vital Signs - 24 hr 03/25/20 19:44 03/25/20 20:10 03/25/20 21:01 Temperature 36.8 C Temperature Source Oral Pulse Rate 67 Pulse Rate [Apical] 60 Respiratory Rate 20 15 Respiratory Effort / Characteristics Non-Labored Spontaneous Respiratory Depth Normal Blood Pressure 153/89 H Blood Pressure [Left Arm] 162/87 H Blood Pressure Mean 110 Blood Pressure Mean [Left Arm] 112 Blood Pressure Position Sitting Pulse Oximetry 96 98 96 Oxygen Delivery Method Room Air Room Air Room Air Sepsis Recent Fever Within 48 Hours No Sepsis Action Taken by Nursing No Action Required Laboratory Data Result diagrams: 03/25/20 20:20 03/25/20 20:20 Lab Results 03/25/20 03/25/20 03/25/20 Range/Units 20:20 20:20 20:20 WBC 5.64 (4.8-10.8) K/uL RBC 4.55 L (4.7-6.1) M/uL Hgb 12.8 L (14.0-18.0) g/dL Hct 39.3 L (42-52) % MCV 86.4 (80-100) fL MCH 28.1 (25-34) pg MCHC 32.6 (32-36) g/dL RDW Std Deviation 43.3 (36.4-46.3) fL RDW Coeff of Princess 13.7 (11.5-14.5) % Plt Count 34 L (130-400) K/uL Immature Gran % (Auto) 0.7 % Neut % (Auto) 38.8 % Lymph % (Auto) 25.9 % Winn % (Auto) 34.0 % Eos % (Auto) 0.4 % Baso % (Auto) 0.2 % Immature Gran # (Auto) 0.04 H (0.00-0.02) K/uL Neut # (Auto) 2.19 (1.4-6.5) K/uL Lymph # (Auto) 1.46 (1.2-3.4) K/uL Winn # (Auto) 1.92 H (0.11-0.59) K/uL Eos # (Auto) 0.02 (0-0.5) K/uL Baso # (Auto) 0.01 (0-0.2) K/uL Platelet Estimate Decreased L (Normal) APTT 26.5 (21.0-31.0) Seconds PTT Ratio 0.9 Sodium 138 (136-145) mmol/L Potassium 4.1 (3.5-5.1) mmol/L Chloride 106 (98-107) mmol/L Carbon Dioxide 29 (21-32) mmol/L Anion Gap 4.0 (3-11) BUN 19 H (7-18) mg/dl Creatinine 1.49 H (0.6-1.4) mg/dl Est Cr Clr Drug Dosing 42.7 ml/min Est GFR ( Amer) 48.9 Est GFR (Non-Af Amer) 42.2 BUN/Creatinine Ratio 12.4 (10-20) Glucose 103 H (70-99) mg/dl Calcium 9.0 (8.5-10.1) mg/dl Magnesium 2.0 (1.8-2.4) mg/dl Total Bilirubin 0.7 (0.2-1) mg/dl AST 19 (15-37) U/L ALT 27 (12-78) U/L Alkaline Phosphatase 44 L (45-117) U/L Troponin I < 0.015 (0-0.045) ng/ml Total Protein 7.4 (6.4-8.2) gm/dl Albumin 3.9 (3.4-5.0) gm/dl Globulin 3.5 (2.5-4.0) gm/dl Albumin/Globulin Ratio 1.1 (0.9-2) TSH 2.320 (0.300-4.500) uIu/ml Administered Medications Discontinued Medications Sodium Chloride (Nss 1000ml) 1,000 mls @ 999 mls/hr IV .Q1H1M EPHRAIM Stop: 03/25/20 21:15 Last Infusion: 03/25/20 21:34 Dose: 0 mls/hr Documented by: [id number] Admin: 03/25/20 20:28 Dose: 999 mls/hr Documented by: [id number] Discharge Plan Visit Data Chief Complaint: Cardiac Assessment Stated Complaint: PASSED OUT 30 MIN AGO ED Provider: Paulino Ordoñez Discharge Problem: Syncope and collapse, Abnormal ECG, LBBB (left bundle branch block), Bradycardia Forms Stand Alone Forms: Count Includes [facility] Prescriptions Prescriptions: No Action docusate sodium 100 mg capsule 100 mg PO DAILY RF: 0 omega-3 acid ethyl esters 1 gram capsule 1 cap PO DAILY RF: 0 multivitamin [Daily Multi-Vitamin] tablet 1 tab PO DAILY RF: 0 tiotropium bromide 18 mcg capsule, w/inhalation device 1 cap inhalation DAILY Qty: 90 RF: 3 telmisartan 20 mg tablet 20 mg PO BID Qty: 180 RF: 3 fluticasone propionate [Flonase Allergy Relief] 50 mcg/actuation [place],Suspension 2 spray INTRANASAL DAILY RF: 0 Airborne Elderberry Tab 1 tab PO DAILY RF: 0 polyethylene glycol 3350 [Miralax] 17 gram/dose Powder 17 g PO DAILY PRN (Reason: Constipation) RF: 0 sodium chloride [Saline Mist] 0.65 % Aerosol,[place] 1 spray INTRANASAL BID PRN (Reason: Nasal Congestion) RF: 0
[2020-03-25] MEDS ORDERED: SODIUM CHLORIDE 0.9% 1000ML 1,000 ML IV SCH (20:15)
[2020-03-25 20:43] LABS: Hematocrit (blood only) 39.3 % (42-52); Hemoglobin 12.8 g/dL (14.0-18.0); Mean Corpuscular Hemoglobin 28.1 pg (25-34); Mean Corpuscular Hgb Conc 32.6 g/dL (32-36); Mean Corpuscular Volume 86.4 fL (80-100); RDW Coefficient of Variation 13.7 % (11.5-14.5); RDW Standard Deviation 43.3 fL (36.4-46.3); Red Blood Count 4.55 M/uL (4.7-6.1); White Blood Count 5.64 K/uL (4.8-10.8)
[2020-03-25 20:44] LABS: Partial Thromboplastin Ratio 0.9; Partial Thromboplastin Time 26.5 Seconds (21.0-31.0)
[2020-03-25 20:49] LABS: Albumin Level 3.9 gm/dl (3.4-5.0); BUN Creatinine Ratio 12.4 (10-20); Blood Urea Nitrogen 19 mg/dl (7-18); Carbon Dioxide 29 mmol/L (21-32); Chloride 106 mmol/L (98-107); Creatinine Clr Calc Pharmacy 42.7 ml/min; Est GFR (African American) 48.9; Est GFR (Non-African American) 42.2; Glucose 103 mg/dl (70-99); Potassium 4.1 mmol/L (3.5-5.1); Sodium 138 mmol/L (136-145)
[2020-03-25 20:57] LABS: Basophils # (auto) 0.01 K/uL (0-0.2); Basophils % (auto) 0.2 %; Eosinophils # (auto) 0.02 K/uL (0-0.5); Eosinophils % (auto) 0.4 %; Immature Granulocytes # (auto) 0.04 K/uL (0.00-0.02); Immature Granulocytes % (auto) 0.7 %; Lymphocytes # (auto) 1.46 K/uL (1.2-3.4); Lymphocytes % (auto) 25.9 %; Monocytes # (auto) 1.92 K/uL (0.11-0.59); Neutrophils # (auto) 2.19 K/uL (1.4-6.5); Neutrophils % (auto) 38.8 %; Platelet Count 34 K/uL (130-400); Platelet Estimate Decreased (Normal)
[2020-03-25 20:59] LABS: Alanine Aminotransferase 27 U/L (12-78); Albumin Globulin Ratio 1.1 (0.9-2); Alkaline Phosphatase 44 U/L (45-117); Aspartate Aminotransferase 19 U/L (15-37); Bilirubin,Total 0.7 mg/dl (0.2-1); Globulin 3.5 gm/dl (2.5-4.0); Total Protein 7.4 gm/dl (6.4-8.2); Troponin I < 0.015 ng/ml (0-0.045)
[2020-03-25] MEDS ORDERED: ASPIRIN CHEW 324 MG PO STA (22:12)
[2020-03-25 22:27] LABS: Appearance Urine Clear (Clear); Bilirubin Urine Negative (Negative); Blood Urine Negative (Negative); Color Urine Yellow; Glucose Urine UA Negative (Negative); Ketones Urine Negative (Negative); Leukocyte Esterase Urine Negative (Negative); Nitrite Urine Negative (Negative); Protein Urine Negative (Negative); Specific Gravity Urine 1.008 (1.000-1.030); Urobilinogen Urine Negative (Negative); pH Urine 7.5 (4.5-7.5)
--- NOTE | 2020-03-26 00:12 | History & Physical Report ---
Date of Service March 26, 2020 Assessment & Plan (1) Syncope and collapse: Mr. Ivan Haque is an 84 year old male with a history of COPD, Hypertension, Hyperlipidemia, Impaired Fasting Glucose, BPH, thrombocytopenia, LBBB and a single Syncopal Episode s/p [employer] LINQ implantable loop recorder 09/20/2019 who presented to [facility] ED for CC of syncope. - [employer] rep was contacted by ED staff for loop recorder interrogation. Patient was shown to have a 33 second cardiac pause at approx 17:42. This was followed by a 4 second cardiac pause at 17:44. There was a 16 second duration of bradycardia at approx 17:44 with rate approx 30bpm. - Based on loop recorder interrogation, obvious cause of syncope was arrythmia caused by prolonged cardiac pause. Coincides with sudden onset without prodromal event. - Although bladder dysfunction, highly doubt episode was caused by epileptic andrade nt. Wasn't post-ictal. - Will admit for cardiac monitoring. - Cardiology consulted for evaluation for possible pace maker. - No significant electrolyte disturbances. - Will get echocardiogram for possible mechanical cardiac cause, review EF but suspect study to be similar to prior echocardiogram about 6 months ago. - Will finish trending trops. - Fall precautions. DVT ppx: SCDs FENGI: Heart healthy Dipso: PCU/Tele Code: DNR/DNI. (2) Bradycardia: as noted above. (3) HTN (hypertension): Will hold home Telmisartan since Creatinine (1.49) appears mildly elevated from baseline (1.30). (4) Severe obstructive sleep apnea: CPAP ordered qHS (5) COPD (chronic obstructive pulmonary disease) case management patient: c/w home Spiriva (6) LBBB (left bundle branch block): Reported to have been found as new during prior syncopal workup in September 2019. ECG in ED pending. (7) Thrombocytopenia: Noted to have chronic history. No signs of current bleed. Review of prior records shows followed with Heme/Onc in the past. Appears close to baseline. Trend. (8) Hyperlipemia: Lipid panel from 09/18/19 reviewed in EMR: Triglycerides 113 Cholesterol 144 LDL 86 HDL 35 Admission and Anticipated Discharge Date Admission Date: 03/26/2020 Anticipated date of discharge: 03/28/20 History of Present Illness Chief Complaint: Syncope Primary Care Provider: Ivan Mcduffie MD Mr. Ivan Haque is an 84 year old male with a history of COPD, Hypertension, Hyperlipidemia, Impaired Fasting Glucose, BPH, thrombocytopenia, LBBB and a single Syncopal Episode s/p [employer] LINQ implantable loop recorder 09/20/2019 who presented to [facility] ED for CC of syncope. He notes taking his dog outside earlier this evening. When getting outside, Ivan notes two neighborhood children were playing near by and his dog became excited while he was attempting to control his pooch he lost consciousness. He notes no prodromal symptoms and notes being in usual state of health lately and today. He does not remember falling. He woke up supine and had bladder incontinence. He notes that he most have been out only seconds as one of the young children handed him his hat that fell off his head. He was able to get up and ambulate back into his house. Family member notes that he reported feeling fatigued but other vaughn was at his neurobaseline. He denies any injury, denies head trauma, current headache, dental injury, tongue injury, bowel incontinence, sleepiness, slurred speech, focal weakness/numbness. He notes having similar episode at [employer] Football game which was worked up with loop recorder. He follows with [facility] Cardiology. At that time, testing for Lyme disease was negative. Patient underwent echocardiogram as well as a stress Cardiolite. He did not have any evidence of ischemia. Dr. Cruz met with the patient and considered either placing a pacemaker because of his LBBB and underlying conduction disease vs placing an implantable loop recorder. Decision was made to proceed with the loop recorder. His implantable loop recorder which showed 2 episodes of bradycardia with heart rates in the 40s -- which occurred while he was sleeping following oral surgery. No other abnormalities were noted. He did not have any evidence of cardiac pauses, tachyarrhythmias, or significant bradyarrhythmias. No evidence of atrial fibrillation either. Plan was to monitor patient in the outpatient setting. [facility] was contacted by ED staff for loop recordings. Patient was shown to have a 33 second cardiac pause at approx 17:42. This was followed by a 4 second cardiac pause at 17:44. There was a 16 second duration of bradycardia at approx 17:44 with rate approx 30bpm. In the ED, he had CT Head performed and a CXR. His labwork was relatively unremarkable with significant electrolyte disturbance. His platelets were decreased and do appear close to baseline. Creatinine 1.49 with baseline approx 1.30. Initial trop was negative. UA was negative. Allergies Allergy/AdvReac Type Severity Reaction Status Date / Time albuterol Allergy Unknown Verified 03/25/20 20:27 Home Medications Home Medications Medication Instructions Recorded Confirmed Type docusate sodium 100 mg capsule 100 mg PO DAILY cap 07/08/19 03/25/20 History multivitamin 1 tab PO DAILY 07/08/19 03/25/20 History omega-3 acid ethyl esters 1 gram 1 cap PO DAILY cap 07/08/19 03/25/20 History capsule tiotropium bromide 18 mcg capsule 1 cap INHALATION DAILY #90 puffs 09/02/19 03/25/20 Rx with inhalation device fluticasone propionate [Flonase 2 spray INTRANASAL DAILY 09/18/19 03/25/20 History Allergy Relief] telmisartan 20 mg tablet 20 mg PO BID #180 tab 01/09/20 03/25/20 Rx Airborne Elderberry Tab 1 tab PO DAILY 03/25/20 03/25/20 History polyethylene glycol 3350 [Miralax] 17 g PO DAILY PRN 03/25/20 03/25/20 History sodium chloride [Saline Mist] 1 spray INTRANASAL BID PRN 03/25/20 03/25/20 Hi story Past Med/Surg History Social History Preferred Language: Peruvian Communication Ability: Effective Order Tracer Required: No Beliefs That Will Affect Care: None marital status: Current Living Situation: Spouse current occupational status: retired Other Information That Helps Us Care for You: No Feels Safe at Home: Yes Safety Concerns: Feels Safe At This Time Smoking Status: Unknown if ever smoked Hx Alcohol Use: No Hx Substance Use: No Review of Systems Review of Systems: All systems reviewed & are unremarkable except as noted in HPI & below Constitutional: no fever and no chills Eyes: not seeing flashes and no worsening vision Ear, Nose, Mouth, Throat: no epistaxis, no mouth lesions and no dental pain Respiratory: no cough, no dyspnea and no hemoptysis Cardiovascular: + syncope; no chest pain, no dyspnea and no palpitations Gastrointestinal: + diarrhea/loose stools (yesterday x1 loose stool); no abdominal pain, no nausea and no vomiting Genitourinary: + urinary incontinence (s/p syncopal episode); no dysuria Musculoskeletal: no back pain, no neck pain, no joint pain and no deformity Integumentary: no wounds Neurologic: no localized weakness, no numbness, no headache(s) and no confusion Endocrine: no polydipsia and no polyphagia Physical Exam Constitutional: WD/WN, vitals as above cooperative and comfortable; no acute distress and not lethargic Eyes: PERRL, conjunctivae normal, anicteric sclerae ENMT: external ear and nose normal, oropharynx normal Neck: normal visual inspection and trachea midline Respiratory: normal respiratory effort, lungs clear to auscultation Cardiovascular: Rate/Rhythm: regular rate and regular rhythm Gastrointestinal (Abdomen): Inspection/Auscultation: normal bowel sounds Percussion/Palpation: abdomen soft; abdomen nontender, no guarding and abdomen not rigid Musculoskeletal: Head/Neck/Chest: normocephalic, head atraumatic and neck supple; no scalp tenderness Spine: no cervical spinal tenderness, no thoracic spinal tenderness and no lumbar spinal tenderness Extremities: extremities normal to inspection and strength 5/5 throughout Knee: no deformity Ankle: no deformity Skin: no rashes, warm and dry Neurologic: CN's II-XI intact bilaterally, moves all extremities and awake; no focal motor deficits and not confused Speech / Cognition: normal speech, no expressive aphasia and no receptive aphasia Cranial Nerves: PERRL, EOM intact bilaterally, tongue midline, able to rotate head bilaterally and symmetric palate elevation Coordination: normal [id number] test Psychiatric: A+Ox3, euthymic affect Results & Data Results & Data ([facility]) Vital Signs (Past 12 Hours) Vital Signs Temp Pulse Pulse Resp BP BP Pulse Ox 03/25/20 23:02 60 17 149/83 H 96 03/25/20 22:00 60 17 156/91 H 96 03/25/20 21:01 60 15 162/87 H 96 03/25/20 20:10 98 03/25/20 19:44 36.8 C 67 20 153/89 H 96 Code Status & VTE Plan Code Status DNR/DNI VTE Prophylaxis Plan VTE Prophylaxis will be ordered: Yes Supervising Physician Co-Signing Physician Notes Patient seen and examined, chart reviewed, case discussed briefly with Dr. Luna and I agree with his assessment and plan as documented above. Mr. Haque is an 84yo C male presenting from home following a syncopal event. Vladimir had a [employer] implantable Loop recorder placed on 09/20/20 for sycopal events in the past. Patient found to have a 33 second pause coinciding with his syncopal event. On exam patient is resting comfortably with CPAP in place, NAD, easily arousable and appropriate Skin -intact HEENT - NC/AT, PERRL, EOMI, MMM, Neck supple Heart - +S1/S2, bradycardic, no m/r/g Lungs - CTA anteriorly Abd - +BS, soft, NT/ND Ext - trace edema Labs and images reviewed, significant for normochromic/normocytic anemia, thrombocytopenia with Plt=40 EKG with SR, 1st degree AV block, QN=457, LBBB unchanged from prior Assessment/Plan: 84yo C male presenting after syncopal event coinciding with sinus pause and bradycardia on loop recorder. Patient will most likely require placement of a pacemaker. -Cardiology consultation appreciated -Patient made NPO -May need transfusion of platelets prior to surgery, CBC and INR with AM labs -Remainder of plan as above Resident Activity Tracking Resident Involvement: Resident Care Provided Care Provided: Adult Hospital Medicine
[2020-03-26] MEDS ORDERED: MAGNESIUM HYDROXIDE SUSP 30 ML UDC PO PRN (01:17)
[2020-03-26] MEDS ORDERED: ACETAMINOPHEN 325 MG TAB PO PRN (01:17)
[2020-03-26] MEDS ORDERED: ALUMINUM/MAGNESIUM SUSP 30 ML UDC PO PRN (01:17)
[2020-03-26] MEDS ORDERED: SODIUM CHLORIDE 0.65% NA SOLN 45 ML (OCEAN) PRN (01:17)
[2020-03-26 01:59] LABS: Mean Corpuscular Hgb Conc 33.1 g/dL (32-36)
[2020-03-26 02:18] LABS: Albumin Level 3.5 gm/dl (3.4-5.0); Calcium 8.3 mg/dl (8.5-10.1); Creatinine Clr Calc Pharmacy 43.3 ml/min; Est GFR (African American) 50.5; Est GFR (Non-African American) 43.6; Potassium 4.3 mmol/L (3.5-5.1)
[2020-03-26 02:23] LABS: Bilirubin,Total 0.6 mg/dl (0.2-1); Globulin 3.5 gm/dl (2.5-4.0); Phosphorus 3.3 mg/dl (2.5-4.9); Troponin I 0.02 ng/ml (0-0.045)
[2020-03-26 02:37] LABS: Hematocrit (blood only) 37.2 % (42-52); Hemoglobin 12.3 g/dL (14.0-18.0); Mean Corpuscular Hemoglobin 28.5 pg (25-34); Mean Corpuscular Volume 86.3 fL (80-100); RDW Coefficient of Variation 13.5 % (11.5-14.5); RDW Standard Deviation 42.9 fL (36.4-46.3); Red Blood Count 4.31 M/uL (4.7-6.1); White Blood Count 7.49 K/uL (4.8-10.8)
[2020-03-26 02:38] LABS: Platelet Count 40 K/uL (130-400)
[2020-03-26 02:40] LABS: Basophils # (auto) 0.01 K/uL (0-0.2); Basophils % (auto) 0.1 %; Eosinophils # (auto) 0.03 K/uL (0-0.5); Eosinophils % (auto) 0.4 %; Immature Granulocytes # (auto) 0.04 K/uL (0.00-0.02); Immature Granulocytes % (auto) 0.5 %; Lymphocytes # (auto) 1.52 K/uL (1.2-3.4); Lymphocytes % (auto) 20.3 %; Monocytes # (auto) 2.01 K/uL (0.11-0.59); Monocytes % (auto) 26.8 %; Neutrophils # (auto) 3.88 K/uL (1.4-6.5); Neutrophils % (auto) 51.9 %; Platelet Estimate Decreased (Normal); RBC Morphology Unremarkable
--- NOTE | 2020-03-26 04:48 | Billing Data ---
Date of Service March 26, 2020 Coding Level of Care Code 70569 Initial Inpt Care Lvl 3
--- NOTE | 2020-03-26 07:39 | CT Scan Report ---
CT OF THE HEAD WITHOUT CONTRAST CLINICAL HISTORY: syncope COMPARISON STUDY: MRI of the brain September 17, 2019. CT DOSE: 614.27 mGy.cm TECHNIQUE: Helical axial images of the head were obtained without IV contrast. Automated exposure con trol was utilized for the study. A dose lowering technique was utilized adhering to the principles o f ALARA. FINDINGS: No acute intracranial hemorrhage, midline shift or mass effect is present. The ventricular system is unremarkable. The basilar cisterns are patent. No extra-axial collections are present. Ther e are no findings to suggest acute dural sinus thrombosis or acute territorial infarct. No significan t calvarial abnormalities are present. Visualized portions of the sinuses and mastoid air cells are c lear. IMPRESSION: No acute intracranial findings. ACT 112: Negative or not required by law. Electronically signed by: Jamie Chong M.D. 03/26/2020 7:38 AM
--- NOTE | 2020-03-26 07:52 | XRay Report ---
XR chest 1V portable HISTORY: syncope COMPARISON: Chest 09/17/2019. FINDINGS: The lungs are clear. Cardiac silhouette is normal in size. No pleural effusions. No pneumot horax. IMPRESSION: No acute process. ACT 112: Negative or not required by law. Electronically signed by: Archie Schwartz M.D. 03/26/2020 7:51 AM
[2020-03-26 07:54] LABS: Mean Corpuscular Hgb Conc 31.8 g/dL (32-36)
[2020-03-26 08:03] LABS: Hematocrit (blood only) 38.7 % (42-52); Hemoglobin 12.3 g/dL (14.0-18.0); Mean Corpuscular Hemoglobin 27.5 pg (25-34); Mean Corpuscular Volume 86.6 fL (80-100); RDW Coefficient of Variation 13.5 % (11.5-14.5); Red Blood Count 4.47 M/uL (4.7-6.1); White Blood Count 7.22 K/uL (4.8-10.8)
[2020-03-26 08:21] LABS: INR 1.2 (0.9-1.1); Prothrombin Time 12.1 Seconds (9.0-12.0)
[2020-03-26 08:22] LABS: BUN Creatinine Ratio 14.2 (10-20); Calcium 8.5 mg/dl (8.5-10.1); Creatinine Clr Calc Pharmacy 48.3 ml/min; Est GFR (African American) 57.7; Est GFR (Non-African American) 49.8; Potassium 4.3 mmol/L (3.5-5.1)
[2020-03-26 08:32] LABS: Basophils # (auto) 0.01 K/uL (0-0.2); Basophils % (auto) 0.1 %; Eosinophils # (auto) 0.03 K/uL (0-0.5); Eosinophils % (auto) 0.4 %; Immature Granulocytes # (auto) 0.19 K/uL (0.00-0.02); Immature Granulocytes % (auto) 2.6 %; Lymphocytes # (auto) 1.27 K/uL (1.2-3.4); Lymphocytes % (auto) 17.6 %; Monocytes % (auto) 31.9 %; Neutrophils # (auto) 3.42 K/uL (1.4-6.5); Neutrophils % (auto) 47.4 %; Platelet Count 38 K/uL (130-400); Platelet Estimate Decreased (Normal)
--- NOTE | 2020-03-26 09:32 | Cardiology Consultation ---
Date of Consultation March 26, 2020 Assessment & Plan (1) Syncope: He presents with recurrent syncope, interestingly both episodes occurring with activities although on stress testing he had no evidence of ischemia. This episode occurred while being monitored by his implantable loop recorder and is reported to show pause, the nature of which I have not been able to discern as I am not seeing the rhythm strips. Curious as to whether this is AV block or sinus node dysfunction, but in either case it sounds as though he will need a pacemaker as there is no reversible cause. I am planning on doing that tomorrow afternoon we will need to sort out the details once I have the diagnostic information. (2) LBBB (left bundle branch block): His left bundle branch block was identified in August 2019, we do not know the duration but there appeared to be no reversible cause such as Lyme disease. At that time he did not have left ventricular dysfunction, a repeat echocardiogram was done today but the results are not available. We need to co nsider whether we want to perform biventricular pacing if we think he will pace a good bit of the time or if he has left ventricular dysfunction, versus standard dual-chamber pacemaker or even left bundle pacing. I will make that determination once I have all the information. (3) SOB (shortness of breath): He has significant shortness of breath and does have COPD and a prior smoking history, however he exerts himself regularly and these are activities which he performs on a regular basis (walking his dog) and therefore I doubt hypoxia has anything to do with the event. History of Present Illness Reason for Consultation: Syncope and pause Attending Physician: Paulino Mccormick, History of Present Illness This is a very active 84-year-old male who has a history of prior smoking but that is remote, he also has COPD however as well as obstructive sleep apnea. He does have a history of hypertension, hyperlipidemia. He has chronic kidney disease and BPH. 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 He presented September 17, 2019 with an episode of syncope. This occurred while walking into the football stadium during the game on September 17, 2019. He became short of breath, grabbed the railing and passed out for several seconds. He had walked over from the parking lot and they had been walking fairly quickly and it was somewhat cold however he was not extraordinarily short of breath and he is quite surprised that this happened. He has had nothing similar before, he did have one episode where he stood up quickly from a chair about a year prior and then felt lightheaded and collapsed back into the chair but did not lose consciousness. His family noted that at the football stadium he fell on his knees and then went down onto the ground but was only unconscious for several seconds per their recollection. He had no other symptoms such as chest discomfort or palpitations. Initial evaluation in the emergency room showed a normal first troponin with the second being 0.046, however his electrocardiogram showed left bundle branch block with first-degree AV block. We do not seem to have a prior electrocardiogram. He had never been in the hospital before and does not think he has ever had an electrocardiogram before that. He does not have a history of Lyme disease. We did perform a nuclear stress test on September 19, 2019 that did not demonstrate ischemia. With no clear etiology for his syncope but several possibilities and this being his only episode we discussed monitoring and ended up implanting a loop recorder on September 20, 2019. He had no further syncopal events until March 25, 2020 when he was out walking his dog and woke up on the ground. He was not injured. Evaluation in the emergency room was unrevealing except for left bundle branch block with first-degree AV block and loop recorder interrogation which is reported to show 1 30 second pause (I have not been able to obtain those reports as yet but they will be available). On presentation blood work was unremarkable, chest x-ray and CT scan were unremarkable. He was admitted. The time I evaluated this morning he feels well, he has felt well since admi ssion with no further symptoms. He reiterates that he had no prodrome prior to his syncopal episode including chest discomfort, palpitations or lightheadedness or dizziness that he recalls. Allergies Allergy/AdvReac Type Severity Reaction Status Date / Time albuterol Allergy Unknown Verified 03/25/20 20:27 Home Medications Home Medications Medication Instructions Recorded Confirmed Type docusate sodium 100 mg capsule 100 mg PO DAILY cap 07/08/19 03/25/20 History multivitamin 1 tab PO DAILY 07/08/19 03/25/20 History omega-3 acid ethyl esters 1 gram 1 cap PO DAILY cap 07/08/19 03/25/20 History capsule tiotropium bromide 18 mcg capsule 1 cap INHALATION DAILY #90 puffs 09/02/19 03/25/20 Rx with inhalation device fluticasone propionate [Flonase 2 spray INTRANASAL DAILY 09/18/19 03/25/20 History Allergy Relief] telmisartan 20 mg tablet 20 mg PO BID #180 tab 01/09/20 03/25/20 Rx Airborne Elderberry Tab 1 tab PO DAILY 03/25/20 03/25/20 History polyethylene glycol 3350 [Miralax] 17 g PO DAILY PRN 03/25/20 03/25/20 History sodium chloride [Saline Mist] 1 spray INTRANASAL BID PRN 03/25/20 03/25/20 History Patient History Medical History COPD with emphysema Surgical History H/O eye surgery Family History Other Diabetes Hypertension Stroke Social History Preferred Language: Hungarian Communication Ability: Effective Certified Massage Therapist Required: No Beliefs That Will Affect Care: None marital status: Current Living Situation: Spouse current occupational status: retired Other Information That Helps Us Care for You: No Feels Safe at Home: Yes Safety Concerns: Feels Safe At This Time Smoking Status: Unknown if ever smoked Hx Alcohol Use: No Hx Substance Use: No Review of Systems Review of Systems: All systems reviewed & are unremarkable except as noted in HPI & below Physical Exam Physical Exam: Constitutional: Alert, cooperative and in no distress. HEENT: Unremarkable Neck: No jugular venous distention, carotid pulses are normal and equal bilaterally without bruits. Pulmonary: Clear to auscultation bilaterally. Cardiac: Regular rhythm with no murmur, gallop or rub. Abdomen: Soft, nontender with normal bowel sounds. Extremities: No edema. Distal pulses intact. Neurologic: No focal findings. Gait is steady. Skin: No rash, ecchymoses or petechiae. Results & Data ([facility]) Vital Signs (Past 12 Hours) Vital Signs Temp Pulse Pulse Resp BP Pulse Ox 03/26/20 08:07 36.4 C L 56 L 18 147/85 H 94 03/26/20 04:00 50 L 16 146/81 H 96 03/26/20 01:41 54 L 16 96 03/26/20 01:02 36.5 C 61 16 171/87 H 95 03/26/20 00:37 57 L 14 133/86 96 03/25/20 23:02 60 17 149/83 H 96 03/25/20 22:00 60 17 156/91 H 96 Laboratory Results Cardiac Enzymes 03/25/20 03/26/20 03/26/20 Range/Units 20:20 01:46 07:37 AST 19 18 (15-37) U/L Troponin I < 0.015 0.020 < 0.015 (0-0.045) ng/ml Coagulation 03/25/20 03/26/20 Range/Units 20:20 07:37 PT 12.1 H (9.0-12.0) Seconds APTT 26.5 (21.0-31.0) Seconds CBC 03/25/20 03/26/20 03/26/20 Range/Units 20:20 01:46 07:37 WBC 5.64 7.49 7.22 (4.8-10.8) K/uL RBC 4.55 L 4.31 L 4.47 L (4.7-6.1) M/uL Hgb 12.8 L 12.3 L 12.3 L (14.0-18.0) g/dL Hct 39.3 L 37.2 L 38.7 L (42-52) % Plt Count 34 L 40 L 38 L (130-400) K/uL Neut # (Auto) 2.19 3.88 3.42 (1.4-6.5) K/uL Lymph # (Auto) 1.46 1.52 1.27 (1.2-3.4) K/uL Mckean # (Auto) 1.92 H 2.01 H 2.30 H (0.11-0.59) K/uL Eos # (Auto) 0.02 0.03 0.03 (0-0.5) K/uL Baso # (Auto) 0.01 0.01 0.01 (0-0.2) K/uL Comprehensive Metabolic Panel 03/25/20 03/26/20 03/26/20 Range/Units 20:20 01:46 07:37 Sodium 138 141 142 (136-145) mmol/L Potassium 4.1 4.3 4.3 (3.5-5.1) mmol/L Chloride 106 109 H 110 H (98-107) mmol/L Carbon Dioxide 29 27 27 (21-32) mmol/L BUN 19 H 20 H 18 (7-18) mg/dl Creatinine 1.49 H 1.45 H 1.30 (0.6-1.4) mg/dl Glucose 103 H 110 H 99 (70-99) mg/dl Calcium 9.0 8.3 L 8.5 (8.5-10.1) mg/dl AST 19 18 (15-37) U/L ALT 27 25 (12-78) U/L Alkaline Phosphatase 44 L 41 L (45-117) U/L Total Protein 7.4 7.0 (6.4-8.2) gm/dl Albumin 3.9 3.5 (3.4-5.0) gm/dl Intake and Output 03/25/20 03/26/20 03/26/20 22:59 06:59 14:59 Intake Total 1000 / 1000 Output Total 500 / 500 Balance 1000 / 500 -500 / 500 Intake: IV 1000 / 1000 Nss 1000ML 1,000 ml @ 999 mls/ 1000 / 1000 hr IV .Q1H1M [facility] Rx#:[id number] Output: Urine 500 / 500 Other: Weight 98.6 kg 96.2 kg Diagnostic Findings An electrocardiogram on arrival March 25, 2020 at 1955 shows sinus rhythm with first-degree AV block (VA interval 234 ms) and left bundle branch block with a wide QRS complex of 162 ms. Telemetry monitoring shows sinus rhythm and sinus bradycardia with an IVCD pattern. No AV block other than first-degree. An echocardiogram was done and results are pending. PG Care Time/CCT Total # of Minutes Spent Total Time Spent with Patient: Total time spent is greater than 50% in coordination of care (as documented) at patient's floor/unit and/or counseling patient: Coding Level of Care Code 25868 Initial Inpt Care Lvl 3 Diagnoses Syncope R55 Syncope type: unspecified LBBB (left bundle branch block) I44.7 SOB (shortness of breath) R06.02 (1) Syncope Syncope type: unspecified Qualified Code(s): R55 - Syncope and collapse
[2020-03-26] MEDS: FLUTICASONE PROPIONATE NA SPR 16 GM BTL SCH (09:42)
[2020-03-26] MEDS: UMECLIDINIUM BROMIDE 62.5MCG/BLISTER 7 PUFFS/INHALER INH SCH (09:42)
[2020-03-26] MEDS: DOCUSATE SODIUM 100 MG CAP PO SCH (09:42)
--- NOTE | 2020-03-26 14:38 | XCELERA ---
[id number]___[id number]
--- NOTE | 2020-03-26 17:38 | Hospitalist Progress Note ---
Date of Service March 26, 2020 Assessment & Plan (1) Syncope and collapse: Mr. Ivan Haque is an 84 year old male with a history of COPD, Hypertension, Hyperlipidemia, Impaired Fasting Glucose, BPH, thrombocytopenia, LBBB and a single Syncopal Episode s/p [employer] LINQ implantable loop recorder 09/20/2019 who presented to [facility] ED for CC of syncope. Syncope - no events on telemetry - [employer] rep was contacted by ED staff for loop recorder interrogation. Patient was shown to have a 33 second cardiac pause at approx 17:42. This was followed by a 4 second cardiac pause at 17:44. There was a 16 second duration of bradycardia at approx 17:44 with rate approx 30bpm. - Based on loop recorder interrogation, obvious cause of syncope was arrhythmia caused by prolonged cardiac pause. Coincides with sudden onset without prodromal event. - Cardiology consulted for evaluation and plan for pacemaker placement tomorrow by Dr. Cruz - No significant electrolyte disturbances. - Echo w/ normal EF, no wall motion abnormalities and no valvular disorders - troponin nl X3 - CXR: no acute process - CT head: no acute intracranial findings - Fall precautions. COPD - continue home medication HTN - continue current medication regimen - continue to monitor Thrombocytopenia - continue to monitor DVT ppx: SCDs FENGI: Heart healthy Dipso: PCU/Tele Code: DNR/DNI. Admission and Anticipated Discharge Date Admission Date: March 26, 2020 Anticipated date of discharge: 03/28/20 Supervising Physician Co-Signing Physician Notes I personally examined the patient and verified all hadley points of history and exam, discussed case, and agree with decision making with Dr Montiel. feeling good, anticipating pacer tomorrow. all questions answered to the best of my ability. vitals noted nad heent nc at mmm breathing unlabored no accessory muscles good effort skin no rashes no pallor or icterus bradycardia/pause/syncope - for pacer. otherwise as above Subjective Doing well today, he states that he states that he has not had any changes in his exercise capacity lately but that due to his COPD that it is at a relatively low baseline. He had already talked to Dr. Cruz and the plan was to go ahead with the pacemaker scheduled for tomorrow. He mentioned that he has been alternating between constipation and diarrhea lately and has not had a bowel movement today. Review of Systems Review of Systems: constitutional - denies: fevers, chills cardiac - denies: chest pain or palpitations GI - denies: nausea or vomiting pulm - denies: cough or shortness of breath or sputum production neuro - denies: headache - denies: urinary frequency, urgency or pain Physical Exam Constitutional: well developed and well nourished; no acute distress Eyes: PERRL, conjunctivae normal, anicteric sclerae ENMT: external ear and nose normal, oropharynx normal Neck: normal visual inspection Respiratory: normal respiratory effort, lungs clear to auscultation Cardiovascular: RRR, no murmur, no edema Chest (Breasts): Chest: normal inspection of chest Gastrointestinal (Abdomen): Inspection/Auscultation: normal bowel sounds Percussion/Palpation: abdomen nontender Skin: no rashes, warm and dry Neurologic: no focal motor deficits Psychiatric: A+Ox3, euthymic affect Results & Data Results & Data ([facility]) Vital Signs (Past 12 Hours) Vital Signs Temp Pulse Resp BP Pulse Ox 03/26/20 15:40 36.5 C 61 20 148/76 H 94 03/26/20 08:07 36.4 C L 56 L 18 147/85 H 94 Resident Activity Tracking Resident Involvement: Resident Care Provided Care Provided: Adult Hospital Medicine
[2020-03-26] MEDS: POLYETHYLENE (MIRALAX) 17 GM PACK PO PRN (19:39)
--- NOTE | 2020-03-26 22:06 | Electrocardiogram Report ---
Test Reason : Blood Pressure : / mmHG Vent. Rate : 065 BPM Atrial Rate : 065 BPM P-R Int : 234 ms QRS Dur : 162 ms QT Int : 460 ms P-R-T Axes : 006 -26 098 degrees QTc Int : 478 ms Sinus rhythm with 1st degree A-V block Left bundle branch block Abnormal ECG When compared with ECG of 17-SEP-2019 22:18, No significant change was found Confirmed by Castillo Sher ([id number]) on 03/26/2020 10:06:07 PM Referred By: REFERRED SELF Confirmed By:Castillo Sher
[2020-03-27] MEDS ORDERED: CEFAZOLIN 2000MG 2,000 MG/15 ML SYR IV SCH (06:00)
[2020-03-27] MEDS ORDERED: CEFAZOLIN 250 MG/ML 1 GM VIAL IV SCH (06:00)
[2020-03-27] MEDS ORDERED: TIOTROPIUM BROMIDE 5 PUFF/90 MCG INH INH SCH (09:00)
[2020-03-27] MEDS: FLUTICASONE PROPIONATE NA SPR 16 GM BTL SCH (09:42)
[2020-03-27] MEDS: DOCUSATE SODIUM 100 MG CAP PO SCH (09:44)
[2020-03-27] MEDS: UMECLIDINIUM BROMIDE 62.5MCG/BLISTER 7 PUFFS/INHALER INH SCH (09:44)
--- NOTE | 2020-03-27 12:08 | Hospitalist Progress Note ---
Date of Service March 27, 2020 Assessment & Plan (1) Syncope and collapse: Mr. Ivan Haque is an 84 year old male with a history of COPD, Hypertension, Hyperlipidemia, Impaired Fasting Glucose, BPH, thrombocytopenia, LBBB and a single Syncopal Episode s/p [employer] LINQ implantable loop recorder 09/20/2019 who presented to [facility] ED for CC of syncope pacemaker placed today. Syncope - [employer] rep was contacted by ED staff for loop recorder interrogation. Patient was shown to have a 33 second cardiac pause at approx 17:42. This was followed by a 4 second cardiac pause at 17:44. There was a 16 second duration of bradycardia at approx 17:44 with rate approx 30bpm. - Based on loop recorder interrogation, obvious cause of syncope was arrhythmia caused by prolonged cardiac pause. Coincides with sudden onset without prodromal event. - Cardiology consulted for evaluation and plan for pacemaker placement by Dr. Cruz today - No significant electrolyte disturbances. - Echo w/ normal EF, no wall motion abnormalities and no valvular disorders - troponin nl X3 - CXR: no acute process - CT head: no acute intracranial findings - Fall precautions. COPD - continue home medication HTN - continue current medication regimen - continue to monitor Thrombocytopenia - continue to monitor DVT ppx: SCDs FENGI: Heart healthy Dipso: PCU/Tele Code: DNR/DNI. Admission and Anticipated Discharge Date Admission Date: March 26, 2020 Anticipated date of discharge: 03/28/20 Supervising Physician Co-Signing Physician Notes I personally examined the patient and verified all hadley points of history and exam, discussed case, and agree with decision making with Dr Montiel. seen after eating lunch. awaiting pacer this afternoon. vitals noted nad heent nc at mmm breathing unlabored no accessory muscles good effort skin no rashes no pallor or icterus bradycardia/pause/syncope - for pacer today. otherwise as above Subjective Doing well this morning he was standing and talking with Dr. Cruz. The plan from cardiology is to have a pacemaker placed today at 1PM. He had no questions for me. Review of Systems Review of Systems: constitutional - denies: fevers, chills cardiac - denies: chest pain or palpitations GI - denies: nausea or vomiting pulm - denies: cough or shortness of breath or sputum production neuro - denies: headache - denies: urinary frequency, urgency or pain Physical Exam Constitutional: well developed and well nourished; no acute distress Eyes: PERRL, conjunctivae normal, anicteric sclerae ENMT: external ear and nose normal, oropharynx normal Neck: normal visual inspection Respiratory: normal respiratory effort, lungs clear to auscultation Cardiovascular: RRR, no murmur, no edema Chest (Breasts): Chest: normal inspection of chest Gastrointestinal (Abdomen): Inspection/Auscultation: normal bowel sounds Percussion/Palpation: abdomen nontender Skin: no rashes, warm and dry Neurologic: no focal motor deficits Psychiatric: A+Ox3, euthymic affect Results & Data Results & Data ([facility]) Vital Signs (Past 12 Hours) Vital Signs Temp Pulse Pulse Pulse Resp BP Pulse Ox 03/27/20 07:29 49 L 03/27/20 07:21 36.6 C 54 L 18 153/84 H 94 03/27/20 04:00 36.6 C 50 L 19 125/75 97 03/27/20 03:37 49 L 16 93 03/27/20 01:05 50 L 16 95 Resident Activity Tracking Resident Involvement: Resident Care Provided Care Provided: Adult Hospital Medicine
[2020-03-27] MEDS ORDERED: BACITRACIN OINT 0.9 GM PKT ONE (12:57)
[2020-03-27] MEDS ORDERED: BACITRACIN INJ 50,000 UNIT VIAL ONE (12:57)
[2020-03-27] MEDS ORDERED: LIDOCAINE HCL 1% 20 ML VIAL ONE ×2 (12:57→13:57)
[2020-03-27] MEDS ORDERED: MIDAZOLAM HCL 5 MG/ML 1 ML VIAL ONE (13:29)
[2020-03-27] MEDS ORDERED: fentaNYL citrate 100 MCG/2 ML VIAL ONE (13:29)
[2020-03-27] MEDS ORDERED: CEFAZOLIN 250 MG/ML 1 GM VIAL ONE (13:30)
--- NOTE | 2020-03-27 13:31 | Cardiology Progress Note ---
Date of Service March 27, 2020 Assessment & Plan (1) Syncope: He presents with recurrent syncope, interestingly both episodes occurring with activities although on stress testing he had no evidence of ischemia. This episode occurred while being monitored by his implantable loop recorder and he did have complete heart block with a heart rate of less than 30 bpm, in addition to which the device reports a 30 second pause, although the data collection was suspended so I cannot confirm it. In any case he requires a pacemaker and he did have an episode of complete heart block documented by the device. I discussed the indications, procedure, risks and alternatives of pacemaker implantation with him and he understands and agrees to proceed. Consent obtained. I also reviewed sedation with him and he agrees. Consent for sedation obtained. (2) LBBB (left bundle branch block): His left bundle branch block was identified in August 2019, we do not know the duration but there appeared to be no reversible cause such as Lyme disease. At that time he did not have left ventricular dysfunction, a repeat echocardiogram was done today and his left ventricular function remains normal. We could still consider using biventricular pacing in case he will pace a good bit of the time in the future, although it appears he will not now, versus standard dual-chamber pacemaker or even left bundle branch pacing. With normal left ventricular function I am hesitant to use conventional biventricular pacing, left bundle-branch pacing might be a reasonable option. (3) SOB (shortness of breath): He has significant shortness of breath and does have COPD and a prior smoking history, however he exerts himself regularly and these are activities which he performs on a regular basis (walking his dog) and therefore I doubt hypoxia has anything to do with the event. Admission and Anticipated Discharge Date Admission Date: March 26, 2020 Anticipated date of discharge: 03/28/20 Subjective He is feeling well today, he has had no further syncopal or presyncopal spells. Physical Exam Physical Exam: Constitutional: Alert, cooperative and in no distress. HEENT: Unremarkable Neck: No jugular venous distention, carotid pulses are normal and equal bilaterally without bruits. Pulmonary: Clear to auscultation bilaterally. Cardiac: Regular rhythm with no murmur, gallop or rub. Abdomen: Soft, nontender with normal bowel sounds. Extremities: No edema. Distal pulses intact. Neurologic: No focal findings. Gait is steady. Skin: No rash, ecchymoses or petechiae. Results & Data ([facility]) Vital Signs (Past 12 Hours) Vital Signs Temp Pulse Pulse Pulse Resp BP Pulse Ox 03/27/20 11:11 36.3 C L 67 20 153/86 H 96 03/27/20 07:29 49 L 03/27/20 07:21 36.6 C 54 L 18 153/84 H 94 03/27/20 04:00 36.6 C 50 L 19 125/75 97 03/27/20 03:37 49 L 16 93 Laboratory Results Intake and Output 03/26/20 03/27/20 03/27/20 22:59 06:59 14:59 Intake Total / 360 Output Total Balance 360 / 359 - Intake: Oral Output: Urine Other: Other Intake Source NPO Weight 96 kg Diagnostic Findings Telemetry: Sinus bradycardia with first-degree AV block and an IVCD. No significant bradycardia or AV block. Loop recorder diagnostics: I reviewed the loop recorder diagnostics and he had a period of complete heart block with a heart rate of less than 30 bpm, he also had what is reported as a 30 pause however interestingly the data collection was suspended for a minute during that recording, so I cannot review it, perhaps it was 30 seconds of asystole but I cannot confirm it. PG Care Time/CCT Total # of Minutes Spent Total Time Spent with Patient: Total time spent is greater than 50% in coordination of care (as documented) at patient's floor/unit and/or counseling patient: Coding Level of Care Code 69861 Subseq Hosp Care Lvl 3 Diagnoses Syncope R55 Syncope type: unspecified LBBB (left bundle branch block) I44.7 SOB (shortness of breath) R06.02 (1) Syncope Syncope type: unspecified Qualified Code(s): R55 - Syncope and collapse
--- NOTE | 2020-03-27 13:32 | Pre Anesthesia Assessment ---
Date of Service March 27, 2020 Pre Sedation Assessment Vital Signs Temp Pulse Pulse Pulse Resp BP Pulse Ox 03/27/20 13:21 57 L 20 183/102 H 96 03/27/20 11:11 36.3 C L 67 20 153/86 H 96 03/27/20 07:29 49 L 03/27/20 07:21 36.6 C 54 L 18 153/84 H 94 03/27/20 04:00 36.6 C 50 L 19 125/75 97 03/27/20 03:37 49 L 16 93 03/27/20 01:05 50 L 16 95 03/27/20 00:00 36.1 C L 52 L 18 129/79 97 03/26/20 19:45 36.5 C 61 18 150/80 H 94 03/26/20 15:40 36.5 C 61 20 148/76 H 94 Cardiovascular RRR, no murmur, no edema Respiratory normal respiratory effort, lungs clear to auscultation Pre-Sedation Airway Assessment Smoking Status: Former smoker Hx Sleep Apnea: Yes Hx Difficult Intubation: No Short, Thick Neck: Yes Thyromental Distance: > or= 3.5 Finger Breadths Oral Cavity: + Dentures Mallampati Class: II ASA: ASA3 NPO Status Date of Last Intake of Fluids: 03/26/20 Time of Last Intake of Fluids: 22:30 Date of Last Intake of Solid Food: 03/26/20 Time of Last Intake of Solid Foods: 17:00 Procedure Planning Contraindications for Sedation: none Current Medications Reviewed: Yes Notes The planned sedation has been discussed with the patient. Informed Consent was obtained. I have identified the patient, determined the appropriateness of sedation and have assessed the patient immediately prior to the procedure. All medicine(s) and interventions are by my order.
--- NOTE | 2020-03-27 15:52 | Electrophysiology Report ---
Date of Service March 27, 2020 Electrophysiology Procedure Electrophysiology Procedure Report Preoperative diagnosis: Syncope, complete heart block Postoperative diagnosis: Same Procedure: Dual-chamber pacemaker implantation Loop recorder explant Surgeon: Robert Cruz MD Estimated blood loss: 40 cc Complications: None Disposition: Testing And Regulating Technician recovery Specimens: Loop recorder, return to [employer] Procedure details: After obtaining informed consent for the procedure, the pat ient was brought to the laboratory and prepped and draped in the standard sterile manner. The left prepectoral region was anesthetized with 1% lidocaine local anesthetic and left axillary venipuncture was performed by percutaneous technique and a guidewire placed through the left subclavian vein into the superior vena cava. The area was further infiltrated with 1% lidocaine local anesthetic and a 5 cm incision was made parallel to the left clavicle and 2 cm below it and carried down to the anterior pectoralis fascia. A pacemaker pocket was formed by blunt dissection anterior to the pectoralis fascia and a bacitracin-soaked sponge (50,000 units in 50 cc normal saline solution) was placed in the pocket. An 8 Citizen Of [place] Med[employer]onic lead introducer was placed over the guidewire into the left subclavian vein, the dilator and guidewire were removed and a bipolar active fixation steroid tipped atrial lead was advanced through the introducer into the superior vena cava. A guidewire was placed through the introducer and the introducer was stripped from the lead and guidewire. This lead was then positioned temporarily in the right ventricular apex for backup pacing, and another 8 Citizen Of [place] Med[employer]onic lead introducer was placed over the guidewire into the left subclavian vein, the dilator and guidewire were removed and a CT 315 ventricular lead introducer was placed through the sheath and using a guidewire positioned on the intraventricular septum. The screw was extended, several positions were tested and ultimately the lead was left in a good mid septal position with a reasonably narrow ventricular activation complex. Pacing and sensing thresholds were evaluated in bipolar configuration and are recorded on the implant data sheet. Once the ventricular lead was in position the atrial lead which had been placed in the right ventricular apex was unscrewed and using a curved stylette the atrial lead was positioned in the region of the atrial appendage and the screw extended fixing the lead in position. Pacing and sensing thresholds were evaluated in bipolar configuration and are recorded on the implant data sheet. Once the leads were in position they were attached to the anterior pectoralis fascia using 2 sutures of 2-0 silk around each lead collar. The bacitracin- soaked sponge was removed from the pocket, hemostasis was obtained, there was more bleeding than usual and Paloma was used to help control it. The pacemaker was attached to the leads and placed in the pocket with the leads coiled beneath it. The incision was closed with a running double subcutaneous closure of 3-0 Vicryl absorbable suture, followed by running subcuticular skin closure of 4-0 Vicryl absorbable suture. Bacitracin ointment was placed on the incision and a dressing applied. The implant scar of the loop recorder was identified and the area was infiltrated with 1% lidocaine local anesthetic and a 1 cm incision was made through the old implant scar and carried down to the loop recorder. The loop recorder was dissected free of tissue and explanted. The incision was closed with a subcutaneous continuous closure of 4-0 Vicryl followed by running subcuticular skin closure of 4-0 Vicryl. Bacitracin ointment was placed on the incision. A dressing was applied. [facility] Electrophysiology codes Indication for Procedure (1) Syncope: (2) AVB (atrioventricular block): Pacing Procedure 1: Pacin Insert/Replace Pacer A & V Implantable Monitors Procedure 1: Implantable Monitors: 46576 Cardiac event recorder explant PG Moderate Sedation Codes Moderate Sedation Codes Procedure 1: Sedation/Anesthesia: 50550 Mod Sedation by the same physician;Init15 Min Child Age 5 & Up Procedure 2: Sedation/Anesthesia: 27290 Mod Sedation by the same physician; Ea [id number] Minutes
[2020-03-27] MEDS ORDERED: ACETAMINOPHEN 325 MG TAB PO PRN (16:05)
[2020-03-27] MEDS ORDERED: ACETAMINOPHEN W/CODEINE #3 1 TAB PO PRN (16:05)
--- NOTE | 2020-03-27 16:05 | Post Anesthesia Assessment ---
Date of Service March 27, 2020 Post Sedation Assessment Vital Signs Temp Pulse Pulse Pulse Resp BP Pulse Ox 03/27/20 15:50 60 16 173/97 H 96 03/27/20 13:21 57 L 20 183/102 H 96 03/27/20 11:11 36.3 C L 67 20 153/86 H 96 03/27/20 07:29 49 L 03/27/20 07:21 36.6 C 54 L 18 153/84 H 94 03/27/20 04:00 36.6 C 50 L 19 125/75 97 03/27/20 03:37 49 L 16 93 03/27/20 01:05 50 L 16 95 03/27/20 00:00 36.1 C L 52 L 18 129/79 97 03/26/20 19:45 36.5 C 61 18 150/80 H 94 Recovery Score Activity: Moves 4 extremities Respiration: Deep Breath/Cough Circulation: +/-20% PreAnes Value Consciousness: Fully Awake Oxygen Saturation: > 92% On Room Air Post Anesthesia Score: 10 Discharge Sedation Level of Care: Fast Track Phase II Post Sedation Plan On clinical assessment, the patient appears to have tolerated the sedation without complications. Patient is recovering as anticipated. Patient will continue to be monitored by nursing and may be discharged when sedation discharge criteria are met per below protocol. Upon Completions of procedure up to 15 minutes continue every 5 minute vital signs and the P.A.R. score; then discharge to a Phase I or Fast Track to Phase II per the following guidelines: * Discharge Patient to appropriate Phase II area if PAR is 8 or greater or return to pre- procedure baseline. The post - procedure orders will be as directed. * If PAR score is less than 8 or not return to pre-procedure baseline then patient will follow Phase I monitoring till PAR is reached for Phase II. The Phase I may be done in procedure room or may call to secure a Phase I area. * If naloxone or flumazenil are used for reversal, hold in Phase I for continued monitoring from when last reversal dose was given for a minimum of 60 minutes or longer pending the nurse and/or physician discretion of patient condition before discharge to Phase II. Please call the Sedation Physician to re-evaluate and complete post-note for discharge to Phase II area. Do NOT discharge from procedure sedation or Phase 1 until post- sedation evaluation note is complete by procedure /sedation MD Sedation Discharge Instructions to be given to the patient at discharge to home.
[2020-03-27] MEDS: LACTATED RINGER'S 1,000 ML IV SCH (16:28)
--- NOTE | 2020-03-27 16:51 | Billing Data ---
Date of Service March 27, 2020 Coding Level of Care Code 77449 Subseq Hosp Care Lvl 2
[2020-03-27] MEDS: POLYETHYLENE (MIRALAX) 17 GM PACK PO PRN (20:00)
[2020-03-27] MEDS: TELMISARTAN 20 MG TAB PO SCH (20:04)
--- NOTE | 2020-03-28 06:41 | XRay Report ---
XR chest 2V PA/lateral HISTORY: 84 years-old Male EXACT TIME ORDERED Evaluate for pneumothorax and l status post placement of a left subclavian pacer COMPARISON: Chest radiograph 03/25/2020 TECHNIQUE: PA and lateral views of the chest FINDINGS: Interval removal of the loop recorder device. Telemetry leads coiled over the chest. Status post plac ement of a left subclavian pacer with leads overlying the expected locations of the right atrium and right ventricle. The leads appear intact. No postprocedural pneumothorax identified. No pleural effus ion, overt pulmonary edema or airspace consolidation typical for pneumonia. Cardiomediastinal and hil ar silhouettes are within normal limits. Degenerative changes of the shoulders and spine. IMPRESSION: Status post placement of a left subclavian pacer. No postprocedural pneumothorax. ACT 112: Negative or not required by law. The above report was generated using voice recognition software. It may contain grammatical, syntax o r spelling errors. Electronically signed by: Blair Dickens M.D. 03/28/2020 6:39 AM
[2020-03-28 07:41] LABS: Mean Corpuscular Hgb Conc 33.9 g/dL (32-36)
[2020-03-28 08:04] LABS: Basophils # (auto) 0.01 K/uL (0-0.2); Basophils % (auto) 0.1 %; Eosinophils # (auto) 0.05 K/uL (0-0.5); Eosinophils % (auto) 0.4 %; Hematocrit (blood only) 41.6 % (42-52); Hemoglobin 14.1 g/dL (14.0-18.0); Immature Granulocytes # (auto) 0.05 K/uL (0.00-0.02); Immature Granulocytes % (auto) 0.4 %; Lymphocytes # (auto) 2.11 K/uL (1.2-3.4); Lymphocytes % (auto) 14.9 %; Mean Corpuscular Volume 85.6 fL (80-100); Monocytes # (auto) 4.48 K/uL (0.11-0.59); Monocytes % (auto) 31.6 %; Neutrophils # (auto) 7.48 K/uL (1.4-6.5); Neutrophils % (auto) 52.6 %; Platelet Count 57 K/uL (130-400); Platelet Estimate Decreased (Normal); RBC Morphology Unremarkable; RDW Coefficient of Variation 13.8 % (11.5-14.5); Red Blood Count 4.86 M/uL (4.7-6.1); White Blood Count 14.18 K/uL (4.8-10.8)
[2020-03-28] MEDS: DOCUSATE SODIUM 100 MG CAP PO SCH (08:09)
[2020-03-28 08:10] LABS: Albumin Level 3.9 gm/dl (3.4-5.0); BUN Creatinine Ratio 15.9 (10-20); Creatinine Clr Calc Pharmacy 42.7 ml/min; Est GFR (African American) 50.5; Est GFR (Non-African American) 43.6; Potassium 4.3 mmol/L (3.5-5.1)
[2020-03-28] MEDS: LACTATED RINGER'S 1,000 ML IV SCH (08:10)
[2020-03-28] MEDS: FLUTICASONE PROPIONATE NA SPR 16 GM BTL SCH (08:10)
[2020-03-28] MEDS: UMECLIDINIUM BROMIDE 62.5MCG/BLISTER 7 PUFFS/INHALER INH SCH (08:10)
[2020-03-28] MEDS: TELMISARTAN 20 MG TAB PO SCH (08:11)
[2020-03-28 08:13] LABS: Bilirubin,Total 0.9 mg/dl (0.2-1); Globulin 3.8 gm/dl (2.5-4.0); Total Protein 7.7 gm/dl (6.4-8.2)
--- NOTE | 2020-03-28 09:34 | Cardiology Progress Note ---
Date of Service March 28, 2020 Assessment & Plan (1) Status post placement of cardiac pacemaker: He is doing well post pacemaker implantation, the device is working well and the leads are in good position on chest x-ray. The site is ecchymotic but stable. I will arrange follow-up in 2 days in the office and put wound care instructions in his chart Admission and Anticipated Discharge Date Admission Date: March 26, 2020 Anticipated date of discharge: 03/28/20 Subjective He is feeling well today, he has minimal incisional discomfort, otherwise feels well with no chest discomfort or shortness of breath. Physical Exam Physical Exam: Both the pacemaker implant site and loop recorder removal site looks clean and dry, he has had minimal bleeding on the dressings. The area is ecchymotic, but does not appear swollen or tender. Cardiac rhythm is regular with no rub Lungs are clear Results & Data ([facility]) Vital Signs (Past 12 Hours) Vital Signs Temp Pulse Pulse Resp BP Pulse Ox 03/28/20 07:47 37.2 C 78 18 133/87 95 03/28/20 07:37 79 03/28/20 03:14 36.4 C L 67 18 108/72 95 03/28/20 03:05 62 20 94 03/27/20 23:12 37.1 C 70 18 101/69 95 03/27/20 21:50 78 18 96 Laboratory Results Cardiac Enzymes 03/28/20 Range/Units 07:01 AST 26 (15-37) U/L CBC 03/28/20 Range/Units 07:01 WBC 14.18 H (4.8-10.8) K/uL RBC 4.86 (4.7-6.1) M/uL Hgb 14.1 (14.0-18.0) g/dL Hct 41.6 L (42-52) % Plt Count 57 L (130-400) K/uL Neut # (Auto) 7.48 H (1.4-6.5) K/uL Lymph # (Auto) 2.11 (1.2-3.4) K/uL [place] # (Auto) 4.48 H (0.11-0.59) K/uL Eos # (Auto) 0.05 (0-0.5) K/uL Baso # (Auto) 0.01 (0-0.2) K/uL Comprehensive Metabolic Panel 03/28/20 Range/Units 07:01 Sodium 135 L (136-145) mmol/L Potassium 4.3 (3.5-5.1) mmol/L Chloride 104 (98-107) mmol/L Carbon Dioxide 22 (21-32) mmol/L BUN 23 H (7-18) mg/dl Creatinine 1.45 H (0.6-1.4) mg/dl Glucose 121 H (70-99) mg/dl Calcium 9.0 (8.5-10.1) mg/dl AST 26 (15-37) U/L ALT 26 (12-78) U/L Alkaline Phosphatase 49 (45-117) U/L Total Protein 7.7 (6.4-8.2) gm/dl Albumin 3.9 (3.4-5.0) gm/dl Intake and Output 03/27/20 03/28/20 03/28/20 22:59 06:59 14:59 Intake Total 120 / 360 240 / 360 Output Total 400 / 975 175 / 975 Balance -280 / -615 65 / -615 Intake: Oral 120 / 360 240 / 360 Output: Urine 400 / 975 175 / 975 Other: Weight 92.9 kg Diagnostic Findings ECG: An electrocardiogram done this morning with ventricular pacing shows a nice improvement in his left bundle branch block pattern with septal pacing. Telemetry: Sinus rhythm with intact AV conduction and IVCD overnight. Chest x-ray: Good lead position, no pneumothorax Pacemaker evaluation: Excellent pacing and sensing characteristics in both leads. PG Care Time/CCT Total # of Minutes Spent Total Time Spent with Patient: Total time spent is greater than 50% in coordination of care (as documented) at patient's floor/unit and/or counseling patient: Coding Level of Care Code 74719 Post Operative Follow-Up Diagnoses Status post placement of cardiac pacemaker Z95.0 CPT Codes Dual Lead Pacemaker System - 62194 ([id number])
--- NOTE | 2020-03-28 19:09 | Billing Data ---
Date of Service March 28, 2020 Coding Level of Care Code D/C Day Management <30 mins
--- NOTE | 2020-03-28 20:31 | Discharge Summary ---
Date of Service March 28, 2020 Admission HPI Per Admitting Provider Mr. Ivan Haque is an 84 year old male with a history of COPD, Hypertension, Hyperlipidemia, Impaired Fasting Glucose, BPH, thrombocytopenia, LBBB and a single Syncopal Episode s/p Med[employer] LINQ implantable loop recorder 09/20/2019 who presented to [facility] ED for CC of syncope. He notes taking his dog outside earlier this evening. When getting outside, Ivan notes two neighborhood children were playing near by and his dog became excited while he was attempting to control his pooch he lost consciousness. He notes no prodromal symptoms and notes being in usual state of health lately and today. He does not remember falling. He woke up supine and had bladder incontinence. He notes that he most have been out only seconds as one of the young children handed him his hat that fell off his head. He was able to get up and ambulate back into his house. Family member notes that he reported feeling fatigued but other vaughn was at his neurobaseline. He denies any injury, denies head trauma, current headache, dental injury, tongue injury, bowel incontinence, sleepiness, slurred speech, focal weakness/numbness. He notes having similar episode at [place] [employer] game which was worked up with loop recorder. He follows with [facility] [place] [place] [facility]. At that time, testing for Lyme disease was negative. Patient underwent echocardiogram as well as a stress Cardiolite. He did not have any evidence of ischemia. Dr. Cruz met with the patient and considered either placing a pacemaker because of his LBBB and underlying conduction disease vs placing an implantable loop recorder. Decision was made to proceed with the loop recorder. His implantable loop recorder which showed 2 episodes of bradycardia with heart rates in the 40s -- which occurred while he was sleeping following oral surgery. No other abn ormalities were noted. He did not have any evidence of cardiac pauses, tachyarrhythmias, or significant bradyarrhythmias. No evidence of atrial fibrillation either. Plan was to monitor patient in the outpatient setting. [employer] was contacted by ED staff for loop recordings. Patient was shown to have a 33 second cardiac pause at approx 17:42. This was followed by a 4 second cardiac pause at 17:44. There was a 16 second duration of bradycardia at approx 17:44 with rate approx 30bpm. In the ED, he had CT Head performed and a CXR. His labwork was relatively unremarkable with significant electrolyte disturbance. His platelets were decreased and do appear close to baseline. Creatinine 1.49 with baseline approx 1.30. Initial trop was negative. UA was negative. Admission Exam Per Admitting Provider Constitutional: WD/WN, vitals as above cooperative and comfortable; no acute distress and not lethargic Eyes: PERRL, conjunctivae normal, anicteric sclerae ENMT: external ear and nose normal, oropharynx normal Neck: normal visual inspection and trachea midline Respiratory: normal respiratory effort, lungs clear to auscultation Cardiovascular: Rate/Rhythm: regular rate and regular rhythm Gastrointestinal (Abdomen): Inspection/Auscultation: normal bowel sounds Percussion/Palpation: abdomen soft; abdomen nontender, no guarding and abdomen not rigid Musculoskeletal: Head/Neck/Chest: normocephalic, head atraumatic and neck supple; no scalp tenderness Spine: no cervical spinal tenderness, no thoracic spinal tenderness and no lumbar spinal tenderness Extremities: extremities normal to inspection and strength 5/5 throughout Knee: no deformity Ankle: no deformity Skin: no rashes, warm and dry Neurologic: CN's II-XI intact bilaterally, moves all extremities and awake; no focal motor deficits and not confused Speech / Cognition: normal speech, no expressive aphasia and no receptive aphasia Cranial Nerves: PERRL, EOM intact bilaterally, tongue midline, able to rotate head bilaterally and symmetric palate elevation Coordination: normal [id number] test Psychiatric: A+Ox3, euthymic affect Principal Diagnosis syncope pauses Discharge Exam Constitutional well developed and well nourished; no acute distress Eyes PERRL, conjunctivae normal, anicteric sclerae ENMT external ear and nose normal, oropharynx normal Neck normal visual inspection Respiratory normal respiratory effort, lungs clear to auscultation Cardiovascular RRR, no murmur, no edema Chest (Breasts) Additional Comments: - incision covered with bandage that is clean and dry Gastrointestinal (Abdomen) Inspection/Auscultation: normal bowel sounds Percussion/Palpation: abdomen nontender Skin no rashes, warm and dry Neurologic no focal motor deficits Psychiatric A+Ox3, euthymic affect Discharge Data Allergies Allergy/AdvReac Type Severity Reaction Status Date / Time albuterol Allergy Unknown Verified 03/25/20 20:27 Consultations 03/25/20 21:25 ED Decision to Admit Stat 03/26/20 01:17 Consult Cardiology Routine Procedures Performed Operation Date: 03/27/20 13:00 Actual Procedures p Pacer with A/V Leads (Dual) - Robert Cruz MD s Remove Cardiac Event Recorder - Robert Cruz MD s Bundle of his Recording - Robert Cruz MD Ordered Studies 03/25/20 20:06 CT head/brain wo con Urgent 03/27/20 07:19 CL Cath Imgs for PACS use only Routine Hospital Course (1) Syncope and collapse: Mr. Ivan Haque is an 84 year old male with a history of COPD, Hypertension, Hyperlipidemia, Impaired Fasting Glucose, BPH, thrombocytopenia, LBBB and a single Syncopal Episode s/p Med[employer] LINQ implantable loop recorder 09/20/2019 who presented to [facility] ED for CC of syncope pacemaker placed by Dr. Cruz with [facility]. Syncope w/ cardiac pauses recorded - [employer] rep was contacted by ED staff for loop recorder interrogation. Patient was shown to have a 33 second cardiac pause at approx 17:42. This was followed by a 4 second cardiac pause at 17:44. There was a 16 second duration of bradycardia at approx 17:44 with rate approx 30bpm. - Based on loop recorder interrogation, obvious cause of syncope was arrhythmia caused by prolonged cardiac pause. Coincides with sudden onset without prodromal event. - Cardiology consulted for evaluation and plan for pacemaker placement by Dr. Cruz - No significant electrolyte disturbances. - Echo w/ normal EF, no wall motion abnormalities and no valvular disorders - troponin nl X3 - initial CXR: no acute process - post operative CXR: pacer wires in position - CT head: no acute intracranial findings COPD - continue home medication HTN - continue current medication regimen - continue to monitor Thrombocytopenia - continue to monitor outpatient Total Time Total Time Spent Total Time Spent (In Minutes): <30 Discharge Plan Discharge Items Patient Disposition: Home - Self-Care Reason For Visit: SYNCOPE Discharge Diagnosis: Post pacemaker implant Activity: Per Instructions section Bathing: Keep incision dry Non-emergency contact: Primary Care Provider Call non-emergency contact if: you have any medication questions Follow-up/Referrals: Ivan Mcduffie MD [Primary Care Provider] - 04/03/20 8:45 am Robert Cruz MD [Physician] - 03/30/20 9:00 am Diet: Heart Healthy Addtl Attending Provider Instructions: ACTIVITY RECOMMENDATIONS: * Do not raise affected arm over head for 2 weeks. SPECIAL CARE INSTRUCTIONS: * If bleeding occurs, apply direct pressure to area for 5 minutes. * Call your doctor if you have severe pain, fever, drainage or bleeding at site. * Keep dressing on and dry for 48 hours then remove. * Keep any scheduled doctor's appointment. * Implant Card - hand held device with website information given. SKIN IRRITATION: * You may experience some redness and/or swelling in the area where radiation was administered. If any skin irritation occurs, please contact your family physician. FOLLOW UP VISIT: Keep any scheduled doctor appointments. Pending Studies at Discharge: No Stand-Alone Forms: [facility], Smoking Cessation Medications and DC Order Prescriptions: Continued docusate sodium 100 mg capsule 100 mg PO DAILY RF: 0 omega-3 acid ethyl esters 1 gram capsule 1 cap PO DAILY RF: 0 multivitamin [Daily Multi-Vitamin] tablet 1 tab PO DAILY RF: 0 tiotropium bromide 18 mcg capsule, w/inhalation device 1 cap inhalation DAILY Qty: 90 RF: 3 telmisartan 20 mg tablet 20 mg PO BID Qty: 180 RF: 3 fluticasone propionate [Flonase Allergy Relief] 50 mcg/actuation [place],Suspension 2 spray INTRANASAL DAILY RF: 0 Airborne Elderberry Tab 1 tab PO DAILY RF: 0 polyethylene glycol 3350 [Miralax] 17 gram/dose Powder 17 g PO DAILY PRN (Reason: Constipation) RF: 0 sodium chloride [Saline Mist] 0.65 % Aerosol,[place] 1 spray INTRANASAL BID PRN (Reason: Nasal Congestion) RF: 0 Discharge Orders: Discharge Order (Routine); Ordered 03/28/20 Ordered By: Navid Rutledge/Other Patient Handouts: Syncope, Discharge Instructions for Pacemaker Implantation Admission Data Admit Date/Time: 03/26/20 00:05 Attending Provider: Paulino Mccormick Admit Provider: Drew Luna Primary Care Provider: Ivan Mcduffie Other Providers: Yamilet Alatorre Alexander W. Other Interventions: Discharge Summary Assessment (RN) Last Done: 03/28/20 12:10 DC Date/Time DO NOT enter until pt leaves facility: 03/28/20 13:10 Supervising Physician Co-Signing Physician Notes I personally examined the patient and verified all hadley points of history and exam, discussed case, and agree with decision making with Dr Montiel. feeling good overall and would like to go home. vitals noted nad heent nc at mmm breathing unlabored no accessory muscles good effort skin no rashes no pallor or icterus bradycardia/pause/syncope - now s/p pacer. 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
--- NOTE | 2020-03-29 05:48 | Electrocardiogram Report ---
Test Reason : Blood Pressure : / mmHG Vent. Rate : 080 BPM Atrial Rate : 080 BPM P-R Int : 180 ms QRS Dur : 100 ms QT Int : 406 ms P-R-T Axes : 014 -62 115 degrees QTc Int : 468 ms Atrial-sensed ventricular-paced rhythm Abnormal ECG When compared with ECG of 25-MAR-2020 19:55, Electronic ventricular pacemaker is now Present Confirmed by Castillo Sher ([id number]) on 03/29/2020 5:47:38 AM Referred By: REFERRED SELF Confirmed By:Castillo Sher
== END 2020-03-28 13:10 | disposition home or self-care (01) | DRG 243 ==
LOC: ED 19:41 → SUATTDRO 03-26 00:05 → 2S 03-26 00:05